=== PATIENT | female | born 1960 | race Caucasian/White ===

== ENCOUNTER 2017-01-11 17:15 | Inpatient (IN) | payer OTHER ==
[2017-01-11 20:14] LABS: INR 1.09 (0.82-1.09)
[2017-01-11 20:19] LABS: BASOPHIL 0.4 % (0-2.0); EOSINOPHIL 0.3 % (0-4.5); MCH 28.9 pg (25.7-33.7); MCHC 33.2 g/dl (32.0-36.0); MEAN CELL VOLUME 87.1 fl (80-96); MEAN PLT VOLUME 7.9 fl (7.5-11.1); NEUTROPHILS 66.6 % (42.8-82.8); PLATELET COUNT 366 K/MM3 (134-434); RDW 14.6 % (11.6-15.6); WHITE BLOOD COUNT 11.4 K/mm3 (4.0-10.0)
--- NOTE | 2017-01-11 20:53 | PDOC ---
History of Present Illness - General History Source: Patient Exam Limitations: No Limitations - History of Present Illness Initial Comments: 01/11/17 21:49 The patient is a 56 year old female with a significant past medical history of diverticulitis and fistula through abdominal wall, sent by PCP to the Emergency Department with lower abdominal pain. The patient reports that last summer she was diagnosed with diverticulitis, and in July developed an abscess and fistula. She reports that her GI has been managing her symptoms with antibiotics , and a tube draining fluid from the abscess. She states that in the past week she was told to stop the antibiotics and start a high fiber diet. She reports that she then had an infection in in her abscess which was cleaned, and was restarted on antibiotics two days ago. She states that her last CT was three weeks ago. She reports that she has not yet had surgery because she did not previously have insurance. The patient denies nausea, vomiting, and diarrhea. Patient denies dysuria, urinary frequency, and urgency. Patient denies fever, cough, and chills. Patient denies chest pain, palpitations, and shortness of breath. PCP: Dr. Thurston Surgical: Dr. Dent GI: Dr. Thiago Lainez <Yanelis Bowen - Last Filed: 01/11/17 21:50> <Iwona Thayer - Last Filed: 01/14/17 05:38> - General Chief Complaint: Pain Stated Complaint: PAIN Time Seen by Provider: 01/11/17 19:23 Past History <Yanelis Bowen - Last Filed: 01/11/17 21:50> - Past Medical History Anemia: No Asthma: No Cancer: No Cardiac Disorders: No CVA: No COPD: No CHF: No Dementia: No Diabetes: No GI Disorders: Yes (Diverticulitis) Disorders: No HTN: No Hypercholesterolemia: No Liver Disease: No Seizures: No Thyroid Disease: No - Surgical History Abdominal Surgery: Yes Appendectomy: No Cardiac Surgery: No Cholecystectomy: No Lung Surgery: No Neurologic Surgery: No Orthopedic Surgery: No - Psycho/Social/Smoking Cessation Hx Anxiety: No Suicidal Ideation: No Smoking History: Former smoker Have you smoked in the past 12 months: No If you are a former smoker, when did you quit?: 20 years ago Information on smoking cessation initiated: No Hx Alcohol Use: No Drug/Substance Use Hx: No Substance Use Type: Marijuana <Iwona Thayer - Last Filed: 01/14/17 05:38> - Past Medical History Allergies/Adverse Reactions: Allergies Allergy/AdvReac Type Severity Reaction Status Date / Time pantoprazole sodium Allergy Verified 01/11/17 17:30 [From Protonix] Home Medications: Ambulatory Orders Levofloxacin [Levaquin -] 500 mg PO DAILY@0600 #20 tablet 09/26/16 Metronidazole [Flagyl -] 500 mg PO TID #60 tablet 09/26/16 Oxycodone HCl/Acetaminophen [Percocet 5-325 mg Tablet] 1 - 2 tab PO Q4H #30 tablet MDD 60mg 09/26/16 Review of Systems - Review of Systems Able to Perform ROS?: Yes Comments:: 01/11/17 21:50 GENERAL/CONSTITUTIONAL: No fever or chills. No weakness. HEAD, EYES, EARS, NOSE AND THROAT: No change in vision. No ear pain or discharge. No sore throat. CARDIOVASCULAR: No chest pain or shortness of breath. RESPIRATORY: No cough, wheezing, or hemoptysis. GASTROINTESTINAL: + open abscess at lower abdomen, + abdominal pain. No nausea , vomiting, diarrhea or constipation. GENITOURINARY: No dysuria, frequency, or change in urination. MUSCULOSKELETAL: No joint or muscle swelling or pain. No neck or back pain. SKIN: No rash NEUROLOGIC: No headache, vertigo, loss of consciousness, or change in strength/ sensation. ENDOCRINE: No increased thirst. No abnormal weight change. HEMATOLOGIC/LYMPHATIC: No anemia, easy bleeding, or history of blood clots. ALLERGIC/IMMUNOLOGIC: No hives or skin allergy. <Yanelis Bowen - Last Filed: 01/11/17 21:50> *Physical Exam - Vital Signs Last Vital Signs Temp Pulse Resp BP Pulse Ox 98.4 F 99 H 21 124/81 96 01/11/17 17:30 01/11/17 17:30 01/11/17 17:30 01/11/17 17:30 01/11/17 17:30 - Physical Exam Comments: 01/11/17 21:50 GENERAL: Awake, alert, and fully oriented, in no acute distress HEAD: No signs of trauma EYES: PERRLA, EOMI, sclera anicteric, conjunctiva clear ENT: Auricles normal inspection, hearing grossly normal, nares patent, oropharynx clear without exudates. Moist mucosa NECK: Normal ROM, supple, no lymphadenopathy, JVD, or masses LUNGS: Breath sounds equal, clear to auscultation bilaterally. No wheezes, and no crackles HEART: Regular rate and rhythm, normal S1 and S2, no murmurs, rubs or gallops ABDOMEN: Lower abdominal pain with palpation. No rebound no guarding. Open abscess at central lower abdomen, below the umbilicus, attached to a colostomy bag for drainage, however no colostomy. EXTREMITIES: Normal range of motion, no edema. No clubbing or cyanosis. No cords, erythema, or tenderness NEUROLOGICAL: Cranial nerves II through XII grossly intact. Normal speech, normal gait SKIN: Warm, Dry, normal turgor, no rashes or lesions noted. <Yanelis Bowen - Last Filed: 01/11/17 21:50> - Vital Signs Last Vital Signs Temp Pulse Resp BP Pulse Ox 98.4 F 99 H 21 124/81 96 01/11/17 17:30 01/11/17 17:30 01/11/17 17:30 01/11/17 17:30 01/11/17 17:30 <Iwona Thayer - Last Filed: 01/14/17 05:38> ED Treatment Course - LABORATORY CBC & Chemistry Diagram: 01/11/17 19:32 01/11/17 19:32 - ADDITIONAL ORDERS Additional order review: Laboratory Results 01/11/17 01/11/17 01/11/17 19:43 19:41 19:41 INR 1.09 Sodium Potassium Chloride Carbon Dioxide Anion Gap BUN Creatinine Creat Clearance w eGFR Random Glucose Calcium Total Bilirubin AST ALT Alkaline Phosphatase Total Protein Albumin Total Amylase Lipase Urine HCG, Qual Negative Blood Type A POSITIVE Antibody Screen 01/11/17 01/11/17 01/11/17 19:32 19:32 19:32 INR Sodium Cancelled Potassium Cancelled Chloride Cancelled Carbon Dioxide Cancelled Anion Gap Cancelled BUN Cancelled Creatinine Cancelled Creat Clearance w eGFR Cancelled Random Glucose Cancelled Calcium Cancelled Total Bilirubin Cancelled AST Cancelled ALT Cancelled Alkaline Phosphatase Cancelled Total Protein Cancelled Albumin Cancelled Total Amylase Cancelled Lipase Cancelled Urine HCG, Qual Blood Type A POSITIVE Antibody Screen Negative 01/11/17 19:32 RBC 4.86 D MCV 87.1 MCHC 33.2 RDW 14.6 MPV 7.9 Neutrophils % 66.6 Lymphocytes % 24.9 D Monocytes % 7.8 Eosinophils % 0.3 Basophils % 0.4 <Yanelis Bowen - Last Filed: 01/11/17 21:50> - LABORATORY CBC & Chemistry Diagram: 01/13/17 06:15 01/13/17 06:15 - ADDITIONAL ORDERS Additional order review: Laboratory Results 01/11/17 01/11/17 01/11/17 19:43 19:41 19:32 INR 1.09 Sodium Potassium Chloride Carbon Dioxide Anion Gap BUN Creatinine Creat Clearance w eGFR Random Glucose Calcium Total Bilirubin AST ALT Alkaline Phosphatase Total Protein Albumin Total Amylase Lipase Cancelled Blood Type A POSITIVE Antibody Screen 01/11/17 01/11/17 19:32 19:32 INR Sodium Cancelled Potassium Cancelled Chloride Cancelled Carbon Dioxide Cancelled Anion Gap Cancelled BUN Cancelled Creatinine Cancelled Creat Clearance w eGFR Cancelled Random Glucose Cancelled Calcium Cancelled Total Bilirubin Cancelled AST Cancelled ALT Cancelled Alkaline Phosphatase Cancelled Total Protein Cancelled Albumin Cancelled Total Amylase Cancelled Lipase Blood Type A POSITIVE Antibody Screen Negative 01/11/17 19:32 RBC 4.86 D MCV 87.1 MCHC 33.2 RDW 14.6 MPV 7.9 Neutrophils % 66.6 Lymphocytes % 24.9 D Monocytes % 7.8 Eosinophils % 0.3 Basophils % 0.4 - RADIOLOGY Radiology Studies Ordered: Category Date Time Status CHEST X-RAY PORTABLE* [RAD] Stat Radiology 01/11/17 19:25 Completed <Iwona Thayer - Last Filed: 01/14/17 05:38> Medical Decision Making - Medical Decision Making 01/11/17 21:50 Dr. Thurston was called at his office at 9:30. Answering service instructed to refer to Hospitalist. <Yanelis Bowen - Last Filed: 01/11/17 21:50> - Medical Decision Making 01/11/17 21:38 Pt comes with abdominal pains and increased drainage form her abdominal wound. She also complains of bubbles coming out of her vagina and fear that she may have another fistula forming. She states that she has been suffering with diverticulitis since Jul 2016. States that she developed abscessed that formed fistulous tracts through her abdominal wall. She did not have insurance and has and her doctors have been treating this with this with oral and IV antibiotics 01/14/17 05:37 Pt admitted to the hospitalist for workup of her fistulas/pathologic bowel. Surg and GI will be consulted. <Iwona Thayer - Last Filed: 01/14/17 05:38> *DC/Admit/Observation/Transfer - Attestations Scribe Attestion: 01/11/17 21:50 Documentation prepared by Yanelis Bowen, acting as medical records director for Iwona Thayer MD. <Yanelis Bowen - Last Filed: 01/11/17 21:50> - Discharge Dispostion Admit: Yes <Iwona Thayer - Last Filed: 01/14/17 05:38> Diagnosis at time of Disposition: Diverticulitis of intestine with perforation and abscess - Referrals
[2017-01-11] MEDS ORDERED: LEVOFLOXACIN 500 MG IVPB 100 ML IVPB ONE ×2 (21:09→21:35)
[2017-01-11] MEDS ORDERED: METRONIDAZOLE 500 MG PREMIXED 100 ML IVPB ONE (21:09)
[2017-01-11] MEDS ORDERED: morphine CARPU-JECT 2 MG/1 ML DISP.SYRIN IVPUSH ONE (22:00)
[2017-01-11 22:04] LABS: ALBUMIN 3.5 g/dl (3.4-5.0); AMYLASE 50 U/L (25-115); ANION GAP 9 (8-16); BILIRUBIN,TOTAL 0.4 mg/dL (0.2-1.0); CALCIUM 9.2 mg/dL (8.5-10.1); CO2 29 mmol/L (21-32); CREATININE 0.7 mg/dL (0.55-1.02); GLUCOSE,RANDOM 103 mg/dL (74-106); SGOT/AST 13 U/L (15-37); SGPT/ALT 18 U/L (12-78); TOT PROT 7.4 g/dl (6.4-8.2)
[2017-01-11] MEDS ORDERED: morphine CARPU-JECT 2 MG/1 ML DISP.SYRIN ONE (22:04)
[2017-01-11 22:05] LABS: ALK PHOS 75 U/L (45-117)
[2017-01-11 23:48] LABS: URINE APPEARANCE TURBID; URINE BILIRUBIN NEGATIVE (NEGATIVE); URINE COLOR YELLOW; URINE GLUCOSE (UA) NEGATIVE (NEGATIVE); URINE KETONE NEGATIVE (NEGATIVE); URINE NITRITE NEGATIVE (NEGATIVE); URINE UROBILINOGEN NEGATIVE E.U./dl (0.2-1.0)
[2017-01-11 23:52] LABS: URINE BLOOD 1+ (NEGATIVE); URINE LEUK ESTERASE 2+ (NEGATIVE); URINE PROTEIN 2+ (NEGATIVE)
[2017-01-11 23:54] LABS: URINE BACTERIA MANY /hpf (NONE SEEN); URINE MUCUS FEW; URINE RBC 44 /hpf (0-3); URINE WBC 3291 /hpf (3-5)
--- NOTE | 2017-01-12 01:16 | HP ---
CHIEF COMPLAINT: abdominal pain PCP: Thurston HISTORY OF PRESENT ILLNESS: This is a 56 year old female with a past medical history of diverticulitis with fistula formulation who presented to the ED with abdominal pain and sensation of bubbling in "crotch" after urinating. Pt unable to specify if the sensation is in the vagina or the urethra. Initially refused CT in the ED. Pt states that she initially started with abdominal pain sometime over the summer but did not go to the doctor until the pain became severe. She was finally diagnosed with diverticulitis on admission to a hospital in [place] on 08/06/16. She was admitted here for diverticulitis from 09/14/16-09/26/16 which was complicated by abscess and fistula formulation. She has been followed as an outpatient by her PCP and Dr. Oshea with po antibiotics. She also developed oral thrush and has been on nystatin solution for it. Upon exam, pt reports mild abdominal pain with the bubbling sensation persisting. ER course was notable for: (1) WBC 11.4 (2) levaquin and flagyl given IV (3) Recent Travel: pt denies PAST MEDICAL HISTORY: diverticulitis with abscess and abdominal wall fistula formation PAST SURGICAL HISTORY: denies Social History: Smokinpack year history, smoked on and off for about 12-14 years 1-2ppd, mostly 2ppd Alcohol: pt denies Drugs: marijuana Family History: father , prostate CA, PMH diabetes, 4vCABG Allergies pantoprazole sodium [From Protonix] Allergy (Verified 01/11/17 17:30) HOME MEDICATIONS: 3 Medication Instructions Recorded Levofloxacin [Levaquin -] 500 mg PO DAILY@0600 #20 tablet 09/26/16 Metronidazole [Flagyl -] 500 mg PO TID #60 tablet 09/26/16 Oxycodone HCl/Acetaminophen 1 - 2 tab PO Q4H #30 tablet MDD 09/26/16 [Percocet 5-325 mg Tablet] 60mg REVIEW OF SYSTEMS CONSTITUTIONAL: Absent: fever, chills, diaphoresis, generalized weakness, malaise, loss of appetite, weight change HEENT: Absent: rhinorrhea, nasal congestion, throat pain, throat swelling, difficulty swallowing, mouth swelling, ear pain, eye pain, visual changes CARDIOVASCULAR: Absent: chest pain, syncope, palpitations, irregular heart rate, lightheadedness , peripheral edema RESPIRATORY: Absent: cough, shortness of breath, dyspnea with exertion, orthopnea, wheezing, stridor, hemoptysis GASTROINTESTINAL: Present: abdominal pain Absent: abdominal distension, nausea, vomiting, diarrhea, constipation, melena, hematochezia GENITOURINARY: Present: bubbling sensation after urination Absent: dysuria, frequency, urgency, hesitancy, hematuria, flank pain, genital pain MUSCULOSKELETAL: Absent: myalgia, arthralgia, joint swelling, back pain, neck pain SKIN: Absent: rash, itching, pallor HEMATOLOGIC/IMMUNOLOGIC: Absent: easy bleeding, easy bruising, lymphadenopathy, frequent infections ENDOCRINE: Absent: unexplained weight gain, unexplained weight loss, heat intolerance, cold intolerance NEUROLOGIC: Absent: headache, focal weakness or paresthesias, dizziness, unsteady gait, seizure, mental status changes, bladder or bowel incontinence PSYCHIATRIC: Absent: anxiety, depression, suicidal or homicidal ideation, hallucinations. PHYSICAL EXAMINATION Vital Signs - 24 hr 3 01/11/17 01/11/17 01/11/17 17:30 17:50 20:05 23:54 Temperature 98.4 F Pulse Rate 99 H Pulse Rate [ 85 82 Right Radial] Respiratory 21 18 18 Rate Blood Pressure 124/81 Blood Pressure 120/71 115/68 [Right Arm] O2 Sat by Pulse 96 100 100 100 Oximetry (%) GENERAL: Awake, alert, and fully oriented, in no acute distress. HEAD: Normal with no signs of trauma. EYES: Pupils equal, round and reactive to light, extraocular movements intact, sclera anicteric, conjunctiva clear. No lid lag. EARS, NOSE, THROAT: Ears normal, nares patent, oropharynx clear without exudates. Moist mucous membranes. tongue with white coating NECK: Normal range of motion, supple without lymphadenopathy, JVD, or masses. LUNGS: Breath sounds equal, clear to auscultation bilaterally. No wheezes, and no crackles. No accessory muscle use. HEART: Regular rate and rhythm, normal S1 and S2 without murmur, rub or gallop. ABDOMEN: Soft, not distended, hyperactive bowel sounds, no guarding, no rebound , no masses. No hepatomegaly or splenomegaly. + tenderness LLQ, central open areas x 2, lower abdomen, draining brown liquid into bag; no erythema to surrounding skin. MUSCULOSKELETAL: Normal range of motion at all joints. No bony deformities or tenderness. No CVA tenderness. UPPER EXTREMITIES: 2+ pulses, warm, well-perfused. No cyanosis. No clubbing. No peripheral edema. LOWER EXTREMITIES: 2+ pulses, warm, well-perfused. No calf tenderness. No peripheral edema. NEUROLOGICAL: Cranial nerves II-XII intact. Normal speech. Normal gait. PSYCHIATRIC: Cooperative. Good eye contact. Appropriate mood and affect. SKIN: Warm, dry, normal turgor, no rashes or lesions noted, normal capillary refill. Laboratory Results - last 24 hr 3 01/11/17 01/11/17 01/11/17 18:00 19:32 19:41 WBC 11.4 H RBC 4.86 D Hgb 14.0 D Hct 42.3 D MCV 87.1 MCHC 33.2 RDW 14.6 Plt Count 366 D MPV 7.9 Neutrophils % 66.6 Lymphocytes % 24.9 D Monocytes % 7.8 Eosinophils % 0.3 Basophils % 0.4 INR 1.09 Sodium 140 Potassium 4.2 Chloride 102 Carbon Dioxide 29 Anion Gap 9 BUN 15 D Creatinine 0.7 Creat Clearance w eGFR > 60 Random Glucose 103 Calcium 9.2 Total Bilirubin 0.4 AST 13 L ALT 18 D Alkaline Phosphatase 75 D Total Protein 7.4 Albumin 3.5 D Total Amylase 50 Lipase 101 Urine Color Urine Appearance Urine pH Ur Specific [employer] Urine Protein Urine Glucose (UA) Urine Ketones Urine Blood Urine Nitrite Urine Bilirubin Urine Urobilinogen Ur Leukocyte Esterase Urine RBC Urine WBC Ur Epithelial Cells Urine Bacteria Urine Mucus Urine HCG, Qual Negative Blood Type A POSITIVE Antibody Screen Negative 3 Urine Color Yellow 01/11/17 23:23 Urine Appearance Turbid 01/11/17 23:23 Urine pH 6.0 (5.0-8.0) 01/11/17 23:23 Ur Specific [employer] 1.016 (1.001-1.035) 01/11/17 23:23 Urine Protein 2+ (NEGATIVE) H 01/11/17 23:23 Urine Glucose (UA) Negative (NEGATIVE) 01/11/17 23:23 Urine Ketones Negative (NEGATIVE) 01/11/17 23:23 Urine Blood 1+ (NEGATIVE) H 01/11/17 23:23 Urine Nitrite Negative (NEGATIVE) 01/11/17 23:23 Urine Bilirubin Negative (NEGATIVE) 01/11/17 23:23 Ur Leukocyte Esterase 2+ (NEGATIVE) H 01/11/17 23:23 Urine RBC 44 /hpf (0-3) 01/11/17 23:23 Urine WBC 3291 /hpf (3-5) 01/11/17 23:23 Ur Epithelial Cells Rare /hpf (FEW) 01/11/17 23:23 Urine Bacteria Many /hpf (NONE SEEN) 01/11/17 23:23 Urine Mucus Few 01/11/17 23:23 ASSESSMENT/PLAN: 56yF with PMH diverticulitis with abscess and fistula formulation presented to the ED with abdominal pain and "bubbles from vaginal area vs urethra". Pt is admitted for further workup. Diverticulitis with abdominal wall fistula with possible new vaginal vs bladder fistula - CT abdomen / pelvis ordered, pt agrees to same. - surgical consult - GI consult - cont levaquin and flagyl IVPB - NPO for now until surgical consult UTI - Cont IV levaquin - CT to r/o vesicular fistula DVT PPX - heparin 5000u TID FEN - NS @ 100cc/hr while NPO - repeat labs including Mg and Phos in am - NPO for now Dispo: Pt currently requires inpatient management of her emergent condition. Visit type - Emergency Visit Emergency Visit: Yes ED Registration Date: 01/11/17 Care time: The patient presented to the Emergency Department on the above date and was hospitalized for further evaluation of their emergent condition. - New Patient This patient is new to me today: Yes Date on this admission: 01/12/17 - Critical Care Critical Care patient: No
[2017-01-12 01:39] VITALS: BMI 20.5
[2017-01-12] MEDS ORDERED: ONDANSETRON 4 MG/2 ML VIAL IVPB PRN (02:42)
[2017-01-12] MEDS ORDERED: ONDANSETRON 4 MG/2 ML VIAL ONE (02:57)
[2017-01-12] MEDS: SODIUM CHLORIDE 1,000 ML IV SCH (03:19)
[2017-01-12] MEDS ORDERED: METRONIDAZOLE 500 MG PREMIXED 100 ML IVPB SCH (04:00)
[2017-01-12] MEDS: morphine CARPU-JECT 2 MG/1 ML DISP.SYRIN IVPUSH PRN ×2 (06:41→16:37)
[2017-01-12] MEDS: NYSTATIN 500,000 UNITS/5 ML SUSPENSION PO SCH ×4 (06:46→23:09)
[2017-01-12] MEDS: METRONIDAZOLE 500 MG PREMIXED 100 ML IVPB SCH ×3 (06:47→17:40)
[2017-01-12] MEDS: HEPARIN NA (PORCINE) 5,000 UNITS/ML 1ML VIAL SQ SCH ×3 (06:47→22:33)
--- NOTE | 2017-01-12 12:52 | CON.GI ---
Consult Consult Specialty:: Gastroenterology Referred by:: Dr. Denzel Thurston and Dr Thayer Reason for Consultation:: Fistulizing diverticular abscesses - History of Present Illness Chief Complaint: lower abdominal pain; stool and bubbles in vagina History of Present Illness: 56W is admitted with lower abdominal pain. She has anterior lower abdominal draining fistulae at drain sites but also describes feces and bubbles emanating from her vagina and ? urine. She had several episodes of abdominal pain in the summer of 2015 before she was hospitalized while visiting [place] in 07/22 with multiple diverticular abscesses that required drains. The drains were removed but she never really improved completely and was hospitalized for the same here in 09/21. Drains were reinserted. She was followed by Dr. Sanders and Dr. Oshea who planned surgery but which she could not afford as they don't accept her insurance. She saw my associated Dr Lainez yesterday in the office c/o pain and active fistulae drainage including probable colovaginal and/or colovesical fistulae. She has never had abdominal surgery or a colonoscopy. No FH of colon cancer. She has lost about 20 lbs since 07/22 and has not had a solid BM since then. - History Source History Provided By: Patient Limitations to Obtaining History: No Limitations - Past Medical History Gastrointestinal: Yes: Diverticulitis (with multiple abscesses leading to colovaginal/vesical and cutaneous fistulae ) ...: No - Past Surgical History Past Surgical History: Yes: None - Alcohol/Substance Use Hx Alcohol Use: No History of Substance Use: reports: Marijuana - Smoking History Smoking history: Former smoker Have you smoked in the past 12 months: No If you are a former smoker, when did you quit?: 20 years ago - Social History Usual Living Arrangement: With Significant Other ADL: Independent Occupation: massage therapist Place of : [facility] History of Recent Travel: Yes Home Medications - Allergies Allergies/Adverse Reactions: Allergies Allergy/AdvReac Type Severity Reaction Status Date / Time pantoprazole sodium Allergy Verified 01/11/17 17:30 [From Protonix] - Home Medications Home Medications: Ambulatory Orders Levofloxacin [Levaquin -] 500 mg PO DAILY@0600 #20 tablet 09/26/16 Metronidazole [Flagyl -] 500 mg PO TID #60 tablet 09/26/16 Oxycodone HCl/Acetaminophen [Percocet 5-325 mg Tablet] 1 - 2 tab PO Q4H #30 tablet MDD 60mg 09/26/16 Family Disease History - Family Disease History Family Disease History: Diabetes: Father (prostate,bladder,penis & skin cancers) , Heart Disease: Father, CA: Father, Other: Mother (alive at 89) Review of Systems - Review of Systems Constitutional: reports: Chills, Malaise, Unintentional Wgt. Loss Eyes: reports: No Symptoms HENT: reports: No Symptoms Neck: reports: No Symptoms Cardiovascular: reports: No Symptoms Respiratory: reports: No Symptoms Gastrointestinal: reports: Abdominal Pain, Diarrhea, Other (cutanous and colovaginal fistulae) Genitourinary: reports: Discharge (feculent) Musculoskeletal: reports: No Symptoms Integumentary: reports: No Symptoms Neurological: reports: No Symptoms Psychiatric: reports: No Symptoms Physical Exam-GI Vital Signs: Vital Signs Temperature 98.2 F 01/12/17 10:00 Pulse Rate 86 01/12/17 10:00 Respiratory Rate 18 01/12/17 10:00 Blood Pressure 106/66 01/12/17 10:00 O2 Sat by Pulse Oximetry (%) 100 01/12/17 10:00 CBC,CMP WBC 11.4 K/mm3 (4.0-10.0) H 01/11/17 19:32 RBC 4.86 M/mm3 (3.60-5.2) D 01/11/17 19:32 Hgb 14.0 GM/dL (10.7-15.3) D 01/11/17 19:32 Hct 42.3 % (32.4-45.2) D 01/11/17 19:32 MCV 87.1 fl (80-96) 01/11/17 19:32 MCHC 33.2 g/dl (32.0-36.0) 01/11/17 19:32 RDW 14.6 % (11.6-15.6) 01/11/17 19:32 Plt Count 366 K/MM3 (134-434) D 01/11/17 19:32 MPV 7.9 fl (7.5-11.1) 01/11/17 19:32 Neutrophils % 66.6 % (42.8-82.8) 01/11/17 19:32 Lymphocytes % 24.9 % (8-40) D 01/11/17 19:32 Monocytes % 7.8 % (3.8-10.2) 01/11/17 19:32 Eosinophils % 0.3 % (0-4.5) 01/11/17 19:32 Basophils % 0.4 % (0-2.0) 01/11/17 19:32 Sodium Cancelled 01/11/17 19:32 Potassium Cancelled 01/11/17 19:32 Chloride Cancelled 01/11/17 19:32 Carbon Dioxide Cancelled 01/11/17 19:32 Anion Gap Cancelled 01/11/17 19:32 BUN Cancelled 01/11/17 19:32 Creatinine Cancelled 01/11/17 19:32 Creat Clearance w eGFR Cancelled 01/11/17 19:32 Random Glucose Cancelled 01/11/17 19:32 Calcium Cancelled 01/11/17 19:32 Total Bilirubin Cancelled 01/11/17 19:32 AST Cancelled 01/11/17 19:32 ALT Cancelled 01/11/17 19:32 Alkaline Phosphatase Cancelled 01/11/17 19:32 Total Protein Cancelled 01/11/17 19:32 Albumin Cancelled 01/11/17 19:32 Total Amylase Cancelled 01/11/17 19:32 Lipase Cancelled 01/11/17 19:32 Current Medications Generic Name Dose Route Start Last Admin Trade Name Freq PRN Reason Stop Dose Admin Heparin Sodium (Porcine) 5,000 unit 01/12/17 06:00 01/12/17 06:47 Heparin - SQ Not Given TID ERIK Levofloxacin 100 mls @ 100 mls/hr 01/12/17 22:00 Levaquin 500 Mg Premixed Ivpb - IVPB HS ERIK Sodium Chloride 1,000 mls @ 100 mls/hr 01/12/17 03:00 01/12/17 03:19 Normal Saline - IV 100 mls/hr ASDIR ERIK Administration Metronidazole 100 mls @ 100 mls/hr 01/12/17 06:00 01/12/17 10:06 Flagyl 500mg Premixed Ivpb - IVPB 100 mls/hr Q8H-IV ERIK Administration Morphine Sulfate 2 mg 01/12/17 01:17 01/12/17 06:41 Morphine Injection - IVPUSH 2 mg Q4H PRN Administration PAIN Nystatin 500,000 units 01/12/17 06:00 01/12/17 12:42 Nystatin Oral Suspension - PO 500,000 units Q6HPO ERIK Administration Ondansetron HCl 4 mg 01/12/17 02:42 01/12/17 03:20 Zofran Injection IVPB 4 mg Q6H PRN Administration NAUSEA Constitutional: Yes: Anxious Eyes: Yes: Conjunctiva Clear HENT: Yes: Normocephalic Neck: Yes: Supple Cardiovascular: Yes: Regular Rate and Rhythm Respiratory: Yes: CTA Bilaterally Gastrointestinal Inspection: Yes: Other (suprapubic draining fistulae) ...Auscultate: Yes: Normoactive Bowel Sounds ...Palpate: Yes: Soft, Other (nontender) ...Rectal Exam: Yes: Deferred (as done by Dr. Lainez yesterday which she reports as guaiac negative) Edema: No Peripheral Pulses WNL: Yes Neurological: Yes: Alert, Oriented Psychiatric: Yes: Alert Labs: INR, PTT INR 1.09 (0.82-1.09) 01/11/17 19:41 Imaging - Results Cat Scan: Image Reviewed (pelvic asbscesses abutting on bladder with cutaneous fistulae) Problem List - Problems (1) [place]-vesical fistula Code(s): N32.1 - VESICOINTESTINAL FISTULA (2) Colocutaneous fistula Code(s): K63.2 - FISTULA OF INTESTINE (3) Weight loss Code(s): R63.4 - ABNORMAL WEIGHT LOSS Assessment/Plan Unrelenting sigmoid diverticulitis and abscesses that have failed to adequately respond to cutaneous drainage and courses of antibiotics now complicated by colocutaneous, colovaginal and probably colovesical fistulae and in need to surgery. Kim informs me that she cannot afford her previous surgeon's rate and seeks a surgeon who will accept her health insurance. I will seek such a surgeon. Will advance the diet. Will discuss drain insertion with the surgeon.
--- NOTE | 2017-01-12 16:20 | EKG ---
Test Reason : Blood Pressure : / mmHG Vent. Rate : 078 BPM Atrial Rate : 078 BPM P-R Int : 122 ms QRS Dur : 082 ms QT Int : 392 ms P-R-T Axes : 080 069 055 degrees QTc Int : 446 ms NORMAL SINUS RHYTHM NORMAL ECG WHEN COMPARED WITH ECG OF 14-SEP-2016 19:04, NO SIGNIFICANT CHANGE WAS FOUND Confirmed by SPRING COURTNEY MD ([id number]) on 01/12/2017 4:19:50 PM Referred By: Confirmed By:SPRING COURTNEY MD
--- NOTE | 2017-01-12 16:35 | PN ---
Physical Exam: SUBJECTIVE: Patient seen and examined. Denies any abdominal pain, or any other discomfort. OBJECTIVE: Vital Signs Period Temp Pulse Resp BP Sys/Lowry Pulse Ox Last 24 Hr 98.1 F-98.6 F 82-102 18-20 106-116/63-79 100-100 GENERAL: Awake, alert, and fully oriented, in no acute distress. HEAD: Normal with no signs of trauma. EYES: Pupils equal, round and reactive to light, extraocular movements intact, sclera anicteric, conjunctiva clear. No lid lag. EARS, NOSE, THROAT: Moist mucous membranes. Entire tongue covered with white coating, likely thrush LUNGS: Breath sounds equal, clear to auscultation bilaterally. No wheezes. HEART: Regular rate and rhythm ABDOMEN: lower abdomen with two small fistulas which are draining light brown liquid into bag; no erythema to surrounding skin. MUSCULOSKELETAL: Normal range of motion at all joints. No bony deformities or tenderness. No CVA tenderness. UPPER EXTREMITIES: 2+ pulses, warm, well-perfused. No cyanosis. No clubbing. No peripheral edema. LOWER EXTREMITIES: 2+ pulses, warm, well-perfused. No calf tenderness. No peripheral edema. NEUROLOGICAL: Normal speech. Normal gait. PSYCHIATRIC: Cooperative. Good eye contact. Appropriate mood and affect. Laboratory Results - last 24 hr 01/11/17 23:23 Urine Color Yellow Urine Appearance Turbid Urine pH 6.0 Ur Specific [place] 1.016 Urine Protein 2+ H Urine Glucose (UA) Negative Urine Ketones Negative Urine Blood 1+ H Urine Nitrite Negative Urine Bilirubin Negative Urine Urobilinogen Negative Ur Leukocyte Esterase 2+ H Urine RBC 44 Urine WBC 3291 Ur Epithelial Cells Rare Urine Bacteria Many Urine Mucus Few Active Medications Generic Name Dose Route Start Last Admin Trade Name Freq PRN Reason Stop Dose Admin Docusate Sodium 100 mg 01/12/17 22:00 Colace - PO TID [facility] Heparin Sodium (Porcine) 5,000 unit 01/12/17 06:00 01/12/17 15:23 Heparin - SQ Not Given TID ERIK Levofloxacin 100 mls @ 100 mls/hr 01/12/17 22:00 Levaquin 500 Mg Premixed Ivpb - IVPB HS ERIK Sodium Chloride 1,000 mls @ 100 mls/hr 01/12/17 03:00 01/12/17 03:19 Normal Saline - IV 100 mls/hr ASDIR ERIK Administration Metronidazole 100 mls @ 100 mls/hr 01/12/17 06:00 01/12/17 10:06 Flagyl 500mg Premixed Ivpb - IVPB 100 mls/hr Q8H-IV ERIK Administration Morphine Sulfate 2 mg 01/12/17 01:17 01/12/17 06:41 Morphine Injection - IVPUSH 2 mg Q4H PRN Administration PAIN Nystatin 500,000 units 01/12/17 06:00 01/12/17 12:42 Nystatin Oral Suspension - PO 500,000 units Q6HPO ERIK Administration Ondansetron HCl 4 mg 01/12/17 02:42 01/12/17 03:20 Zofran Injection IVPB 4 mg Q6H PRN Administration NAUSEA ASSESSMENT/PLAN: Patient is a 56 year old female with a past medical history of diverticulitis with abscess and fistula formulation, multiple diverticular abscesses that required drains. She presented to the ER on 01/11/2017 with abdominal pain and with complaints of "bubbles from vaginal area". She had planned outpatient abdominal surgery but unable to afford secondary to insurance. She saw Dr Lainez yesterday who advised her to come to the hospital. She has lost an average of 20lbs since July 2016. Imaging: CT abdomen/pelvis 01/12/2017: in comparison to study 12/20/2016 small pericolonic abscess along the ventral border of the sigmoid colon appears mildly increased in size currently measuring 2cm in diameter was 1.5cm a pericolonic abscess along the inferior border of the sigmoid colon appears slightly dim. in size A 1.7 cm abscess is noted with the cul de sac previous measuring 2cm A sigmoid cutaneous fistula appears slightly increased in size A second sigmoid-cutaneous fistula more inferiorly appears unchanged Interval appearance of a small amount of air is seen within the urinary bladder lumen due to recent cath versus development of colovesicul fistula GI: Diverticulitis with abdominal wall fistula with possible new colovesical fistula as per CT Assessment/Plan: Surgical noted reviewed, surgery likely Advance diet as per surgery Monitor output from fistula Surgical/GI consult On Flagyl and Levaquin : Possible new colovesical fistula as per CT Assessment/Plan: Urine cultures pending On Levaquin and Flagyl Remains afebrile, hemodynamically stable Monitor and consider ID consult if becomes febrile Muscular/Skeletal Abnormal weight loss - chronic Assessment/Plan: likely secondary to multiple fistulas, poor appetite Will consult RD, Monitor weights oral thrush - on nystatin F.E.N: Diet as per surgery, RD consult to assess if pt is candidate for PPN Fluids: NS @ 100cc/hr Nutrition: advance as per surgery Prophylaxis: GI: Protonix ivpb DVT:Heparin Dispo: Pt currently requires inpatient management of her emergent condition. Visit type - Emergency Visit Emergency Visit: Yes ED Registration Date: 01/11/17 Care time: The patient presented to the Emergency Department on the above date and was hospitalized for further evaluation of their emergent condition. - New Patient This patient is new to me today: Yes Date on this admission: 01/12/17 - Critical Care Critical Care patient: No - Discharge Referral Referred to [facility] Med P.C.: No
[2017-01-12] MEDS: LEVOFLOXACIN 500 MG IVPB 100 ML IVPB SCH (22:33)
[2017-01-12] MEDS: DOCUSATE SODIUM 100 MG CAPSULE (FP) PO SCH (22:33)
[2017-01-13] MEDS: METRONIDAZOLE 500 MG PREMIXED 100 ML IVPB SCH ×3 (01:48→18:13)
[2017-01-13] MEDS: SODIUM CHLORIDE 1,000 ML IV SCH ×2 (01:49→03:00)
[2017-01-13] MEDS: HEPARIN NA (PORCINE) 5,000 UNITS/ML 1ML VIAL SQ SCH ×4 (05:55→21:18)
[2017-01-13] MEDS: DOCUSATE SODIUM 100 MG CAPSULE (FP) PO SCH ×3 (05:55→21:11)
[2017-01-13] MEDS: NYSTATIN 500,000 UNITS/5 ML SUSPENSION PO SCH ×3 (05:55→18:13)
[2017-01-13] MEDS: morphine CARPU-JECT 2 MG/1 ML DISP.SYRIN IVPUSH PRN (06:08)
[2017-01-13 07:36] LABS: BASOPHIL 0.5 % (0-2.0); EOSINOPHIL 0.8 % (0-4.5); MCH 29.3 pg (25.7-33.7); MCHC 33.5 g/dl (32.0-36.0); MEAN CELL VOLUME 87.6 fl (80-96); MEAN PLT VOLUME 7.7 fl (7.5-11.1); NEUTROPHILS 58.1 % (42.8-82.8); PLATELET COUNT 244 K/MM3 (134-434); RDW 14.5 % (11.6-15.6); WHITE BLOOD COUNT 5.2 K/mm3 (4.0-10.0)
[2017-01-13] MEDS ORDERED: morphine CARPU-JECT 4 MG/1 ML DISP.SYRIN IVPUSH PRN (07:40)
[2017-01-13] MEDS ORDERED: morphine CARPU-JECT 2 MG/1 ML DISP.SYRIN IVPUSH ONE (08:00)
[2017-01-13 08:11] LABS: CALCIUM 8.3 mg/dL (8.5-10.1); MAGNESIUM 2.1 mg/dL (1.8-2.4)
[2017-01-13 08:12] LABS: COCKROFT - GAULT 104.55; CREATININE 0.5 mg/dL (0.55-1.02)
--- NOTE | 2017-01-13 09:16 | PN ---
Physical Exam: SUBJECTIVE: Patient seen and examined. States she is having abdominal pain not relieved with morphine. OBJECTIVE: Patient still with abdominal pain despite Morphine 2mg given 1 hour prior, will change to Dilaudid 0.5mg q4 and monitor Vital Signs Period Temp Pulse Resp BP Sys/Lowry Pulse Ox Last 24 Hr 97.9 F-99.2 F 75-102 18-20 87-114/51-68 100-100 GENERAL: Awake, alert, and fully oriented, in no acute distress. HEAD: Normal with no signs of trauma. EYES: Pupils equal, round and reactive to light, extraocular movements intact, sclera anicteric, conjunctiva clear. No lid lag. EARS, NOSE, THROAT: Moist mucous membranes. Entire tongue covered with white coating, likely thrush LUNGS: Breath sounds equal, clear to auscultation bilaterally. No wheezes. HEART: Regular rate and rhythm ABDOMEN: lower abdomen with two small fistulas which are draining light brown liquid into bag; no erythema to surrounding skin. MUSCULOSKELETAL: Normal range of motion at all joints. No bony deformities or tenderness. No CVA tenderness. UPPER EXTREMITIES: 2+ pulses, warm, well-perfused. No cyanosis. No clubbing. No peripheral edema. LOWER EXTREMITIES: 2+ pulses, warm, well-perfused. No calf tenderness. No peripheral edema. NEUROLOGICAL: Normal speech. Normal gait. PSYCHIATRIC: Cooperative. Good eye contact. Appropriate mood and affect. Laboratory Results - last 24 hr 01/13/17 01/13/17 01/13/17 06:15 06:15 06:15 WBC 5.2 D RBC 4.15 Hgb 12.2 D Hct 36.3 MCV 87.6 MCHC 33.5 RDW 14.5 Plt Count 244 D MPV 7.7 Neutrophils % 58.1 Lymphocytes % 29.5 Monocytes % 11.1 H Eosinophils % 0.8 D Basophils % 0.5 Sodium 141 Potassium 3.8 Chloride 108 H Carbon Dioxide 25 Anion Gap 8 BUN 7 D Creatinine 0.5 L D Random Glucose 118 H Calcium 8.3 L Phosphorus 3.0 Magnesium 2.1 C-Reactive Protein 1.4 H D Active Medications Generic Name Dose Route Start Last Admin Trade Name Freq PRN Reason Stop Dose Admin Docusate Sodium 100 mg 01/12/17 22:00 01/13/17 05:55 Colace - PO 100 mg TID ERIK Administration Heparin Sodium (Porcine) 5,000 unit 01/12/17 06:00 01/13/17 05:55 Heparin - SQ Not Given TID ERIK Levofloxacin 100 mls @ 100 mls/hr 01/12/17 22:00 01/12/17 22:33 Levaquin 500 Mg Premixed Ivpb - IVPB 100 mls/hr HS ERIK Administration Sodium Chloride 1,000 mls @ 100 mls/hr 01/12/17 03:00 01/13/17 03:00 Normal Saline - IV Not Given ASDIR ERIK Metronidazole 100 mls @ 100 mls/hr 01/12/17 06:00 01/13/17 01:48 Flagyl 500mg Premixed Ivpb - IVPB 100 mls/hr Q8H-IV ERIK Administration Nystatin 500,000 units 01/12/17 06:00 01/13/17 05:55 Nystatin Oral Suspension - PO 500,000 units Q6HPO ERIK Administration Ondansetron HCl 4 mg 01/12/17 02:42 01/12/17 03:20 Zofran Injection IVPB 4 mg Q6H PRN Administration NAUSEA ASSESSMENT/PLAN: Patient is a 56 year old female with a past medical history of diverticulitis with abscess and fistula formulation, multiple diverticular abscesses that required drains. She presented to the ER on 01/11/2017 with abdominal pain and with complaints of "bubbles from vaginal area". She had planned outpatient abdominal surgery but unable to afford secondary to insurance. She saw Dr Lainez who advised her to come to the hospital. She has lost an average of 20lbs since July 2016. Imaging: CT abdomen/pelvis 01/12/2017: in comparison to study 12/20/2016 small pericolonic abscess along the ventral border of the sigmoid colon appears mildly increased in size currently measuring 2cm in diameter was 1.5cm a pericolonic abscess along the inferior border of the sigmoid colon appears slightly dim. in size A 1.7 cm abscess is noted with the cul de sac previous measuring 2cm A sigmoid cutaneous fistula appears slightly increased in size A second sigmoid-cutaneous fistula more inferiorly appears unchanged Interval appearance of a small amount of air is seen within the urinary bladder lumen due to recent cath versus development of colovesicul fistula GI: Diverticulitis with abdominal wall fistula with possible new colovesical fistula as per CT Assessment/Plan: Surgical noted reviewed Advance diet as per surgery Monitor output from fistula Surgical/GI following On Flagyl and Levaquin : Possible new colovesical fistula as per CT Assessment/Plan: Urine cultures pending On Levaquin and Flagyl Remains afebrile, hemodynamically stable Monitor and consider ID consult if becomes febrile Muscular/Skeletal Abnormal weight loss - chronic Assessment/Plan: likely secondary to multiple fistulas, poor appetite Will consult RD, Monitor weights oral thrush - on nystatin F.E.N: Diet as per surgery, RD consult to assess if pt is candidate for PPN Fluids: NS @ 100cc/hr Nutrition: advance as per surgery Prophylaxis: GI: Protonix ivpb DVT:Heparin Dispo: Pt currently requires inpatient management of her emergent condition. Visit type - Emergency Visit Emergency Visit: Yes ED Registration Date: 01/11/17 Care time: The patient presented to the Emergency Department on the above date and was hospitalized for further evaluation of their emergent condition. - New Patient This patient is new to me today: No - Critical Care Critical Care patient: No - Discharge Referral Referred to [facility] Med P.C.: No
[2017-01-13] MEDS: HYDROmorphone HCL CARPU-JECT 1 MG/1 ML DISP.SYRIN IVPUSH PRN ×2 (10:08→15:23)
--- NOTE | 2017-01-13 11:56 | PN ---
Progress Note (short form) - Note Progress Note: Attending Surgeon Patient was seen and evaluated yesterday; I was asked to see her by Dr. Starkey; patient was seen and imaging reviewed; full note to follow; she will need a Hartmans procedure and then mormon of colonic continuity after the acute process resolves. Best Hernández MD FACS
[2017-01-13] MEDS: LEVOFLOXACIN 500 MG IVPB 100 ML IVPB SCH (21:11)
[2017-01-14] MEDS: NYSTATIN 500,000 UNITS/5 ML SUSPENSION PO SCH ×4 (00:02→18:05)
[2017-01-14] MEDS: HYDROmorphone HCL CARPU-JECT 1 MG/1 ML DISP.SYRIN IVPUSH PRN ×3 (00:41→13:23)
[2017-01-14] MEDS: METRONIDAZOLE 500 MG PREMIXED 100 ML IVPB SCH ×3 (02:30→18:04)
[2017-01-14] MEDS: SODIUM CHLORIDE 1,000 ML IV SCH (03:30)
[2017-01-14] MEDS: DOCUSATE SODIUM 100 MG CAPSULE (FP) PO SCH ×3 (05:29→21:02)
[2017-01-14] MEDS: HEPARIN NA (PORCINE) 5,000 UNITS/ML 1ML VIAL SQ SCH ×3 (05:30→21:02)
[2017-01-14 07:21] LABS: BASOPHIL 0.3 % (0-2.0); EOSINOPHIL 0.8 % (0-4.5); MCH 29.3 pg (25.7-33.7); MCHC 33.7 g/dl (32.0-36.0); MEAN CELL VOLUME 86.9 fl (80-96); MEAN PLT VOLUME 7.6 fl (7.5-11.1); NEUTROPHILS 62.6 % (42.8-82.8); PLATELET COUNT 279 K/MM3 (134-434); RDW 14.5 % (11.6-15.6); WHITE BLOOD COUNT 6.5 K/mm3 (4.0-10.0)
[2017-01-14 07:41] LABS: ALBUMIN 3.1 g/dl (3.4-5.0); ANION GAP 9 (8-16); CALCIUM 8.9 mg/dL (8.5-10.1); CO2 28 mmol/L (21-32); GLUCOSE,RANDOM 110 mg/dL (74-106)
[2017-01-14 07:43] LABS: ALK PHOS 68 U/L (45-117); BILIRUBIN,TOTAL 0.5 mg/dL (0.2-1.0); COCKROFT - GAULT 87.125; CREATININE 0.6 mg/dL (0.55-1.02); SGOT/AST 10 U/L (15-37); SGPT/ALT 14 U/L (12-78); TOT PROT 6.7 g/dl (6.4-8.2)
--- NOTE | 2017-01-14 10:41 | PN ---
Progress Note (short form) - Note Progress Note: GI Note: It appears that Dr Hernández has consulted so will cancel consult with Dr Bedoya. 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
--- NOTE | 2017-01-14 12:20 | PN ---
GI Progress Note Subjective: GI NOte: Eating low residue diet and having BMs but has been having cramp LLQ pain and increased residue in her urine as is reflected by her urine culture. This strongly suggests a colovesical fistula and the need for surgery RENE. - Objective Vital Signs: Vital Signs Temperature 97.9 F 01/14/17 09:58 Pulse Rate 89 01/14/17 09:58 Respiratory Rate 20 01/14/17 09:58 Blood Pressure 134/80 01/14/17 09:58 O2 Sat by Pulse Oximetry (%) 98 01/13/17 21:00 Constitutional: Anxious ...Auscultate: Yes: Normoactive Bowel Sounds ...Palpate: Yes: Soft, Tenderness (suprapubic) Labs: CBC, BMP 01/14/17 05:40 01/14/17 05:40 INR, PTT INR 1.09 (0.82-1.09) 01/11/17 19:41 Assessment/Plan Diverticular abscesses with colovesical and colocutaneous fistulae and risk for sepsis. Dr Hernández is planning the surgery. Will ask ID to consult. Problem List - Problems (1) [place]-vesical fistula Code(s): N32.1 - VESICOINTESTINAL FISTULA (2) Colocutaneous fistula Code(s): K63.2 - FISTULA OF INTESTINE (3) Weight loss Code(s): R63.4 - ABNORMAL WEIGHT LOSS
--- NOTE | 2017-01-14 13:15 | PN ---
Physical Exam: SUBJECTIVE: Patient seen and examined. States she feels well, denies any chest pain. Having intermittent abdominal pain relieved with Dilaudid. OBJECTIVE: Noted to have low grade fevers today ID consulted Blood cultures ordered, repeated urine culture Vital Signs Period Temp Pulse Resp BP Sys/Lowry Pulse Ox Last 24 Hr 97.9 F-99.5 F 87-103 18-20 108-134/68-81 98-98 GENERAL: Awake, alert, and fully oriented, in no acute distress. HEAD: Normal with no signs of trauma. EYES: Pupils equal, round and reactive to light, extraocular movements intact, sclera anicteric, conjunctiva clear. No lid lag. EARS, NOSE, THROAT: Moist mucous membranes. Entire tongue covered with white coating, likely thrush LUNGS: Breath sounds equal, clear to auscultation bilaterally. No wheezes. HEART: Regular rate and rhythm ABDOMEN: lower abdomen with two small fistulas which are draining light brown liquid into bag; no erythema to surrounding skin. MUSCULOSKELETAL: Normal range of motion at all joints. No bony deformities or tenderness. No CVA tenderness. UPPER EXTREMITIES: 2+ pulses, warm, well-perfused. No cyanosis. No clubbing. No peripheral edema. LOWER EXTREMITIES: 2+ pulses, warm, well-perfused. No calf tenderness. No peripheral edema. NEUROLOGICAL: Normal speech. Normal gait. PSYCHIATRIC: Cooperative. Good eye contact. Appropriate mood and affect. Laboratory Results - last 24 hr 01/14/17 01/14/17 05:40 05:40 WBC 6.5 RBC 4.32 Hgb 12.6 Hct 37.5 MCV 86.9 MCHC 33.7 RDW 14.5 Plt Count 279 MPV 7.6 Neutrophils % 62.6 Lymphocytes % 26.3 Monocytes % 10.0 Eosinophils % 0.8 Basophils % 0.3 Sodium 143 Potassium 4.4 Chloride 106 Carbon Dioxide 28 Anion Gap 9 BUN 8 Creatinine 0.6 Creat Clearance w eGFR > 60 Random Glucose 110 H Calcium 8.9 Total Bilirubin 0.5 D AST 10 L D ALT 14 D Alkaline Phosphatase 68 Total Protein 6.7 Albumin 3.1 L Active Medications Generic Name Dose Route Start Last Admin Trade Name Freq PRN Reason Stop Dose Admin Docusate Sodium 100 mg 01/12/17 22:00 01/14/17 05:29 Colace - PO 100 mg TID ERIK Administration Heparin Sodium (Porcine) 5,000 unit 01/12/17 06:00 01/14/17 05:30 Heparin - SQ Not Given TID ERIK Hydromorphone HCl 0.5 mg 01/13/17 09:15 01/14/17 08:56 Dilaudid Injection - IVPUSH 0.5 mg Q4H PRN Administration PAIN Levofloxacin 100 mls @ 100 mls/hr 01/12/17 22:00 01/13/17 21:11 Levaquin 500 Mg Premixed Ivpb - IVPB 100 mls/hr HS ERIK Administration Sodium Chloride 1,000 mls @ 100 mls/hr 01/12/17 03:00 01/14/17 03:30 Normal Saline - IV 100 mls/hr ASDIR ERIK Administration Metronidazole 100 mls @ 100 mls/hr 01/12/17 06:00 01/14/17 09:57 Flagyl 500mg Premixed Ivpb - IVPB 100 mls/hr Q8H-IV ERIK Administration Nystatin 500,000 units 01/12/17 06:00 01/14/17 05:29 Nystatin Oral Suspension - PO 500,000 units Q6HPO ERIK Administration Ondansetron HCl 4 mg 01/12/17 02:42 01/12/17 03:20 Zofran Injection IVPB 4 mg Q6H PRN Administration NAUSEA ASSESSMENT/PLAN: Patient is a 56 year old female with a past medical history of diverticulitis with abscess and fistula formulation, multiple diverticular abscesses that required drains. She presented to the ER on 01/11/2017 with abdominal pain and with complaints of "bubbles from vaginal area". She had a planned outpatient abdominal surgery but unable to afford procedure secondary to insurance. She saw Dr Lainez who advised her to come to the hospital. She has lost an average of 20lbs since July 2016. Imaging: CT abdomen/pelvis 01/12/2017: in comparison to study 12/20/2016 small pericolonic abscess along the ventral border of the sigmoid colon appears mildly increased in size currently measuring 2cm in diameter was 1.5cm a pericolonic abscess along the inferior border of the sigmoid colon appears slightly dim. in size A 1.7 cm abscess is noted with the cul de sac previous measuring 2cm A sigmoid cutaneous fistula appears slightly increased in size A second sigmoid-cutaneous fistula more inferiorly appears unchanged Interval appearance of a small amount of air is seen within the urinary bladder lumen due to recent cath versus development of colovesicul fistula GI: Diverticulitis with abdominal wall fistula with possible new colovesical fistula as per CT Assessment/Plan: Surgical noted reviewed Advance diet as per surgery Monitor output from fistula Surgical/GI following On Flagyl and Levaquin ID: Sepsis risk Possible new colovesical fistula as per CT Assessment/Plan: patient now having low grade fevers ID consulted On Levaquin and Flagyl Blood cultures ordered, repeated urine culture Muscular/Skeletal Abnormal weight loss - chronic Assessment/Plan: likely secondary to multiple fistulas, poor appetite Will consult RD, Monitor weights oral thrush - on nystatin F.E.N: iet, RD consult to assess if pt is candidate for PPN - monitor weights Fluids: NS @ 100cc/hr Eletrolyges Nutrition: advance as per surgery Prophylaxis: GI: deferred DVT:Heparin TID Dispo: Pt currently requires inpatient management of her emergent condition. Full Code. Visit type - Emergency Visit Emergency Visit: Yes ED Registration Date: 01/11/17 Care time: The patient presented to the Emergency Department on the above date and was hospitalized for further evaluation of their emergent condition. - New Patient This patient is new to me today: No - Critical Care Critical Care patient: No - Discharge Referral Referred to [facility] Med P.C.: No
--- NOTE | 2017-01-14 15:53 | PN ---
Progress Note (short form) - Note Progress Note: ID Consult dictated Colocutaneous, possible colovesicular/ colovaginal fistulae Low grade temp Hx ESBL wound c/s No evidence for systemic infection at this time Will obtain blood c/s Continue levaquin / flagyl Surgical mgt of fistulae
--- NOTE | 2017-01-14 18:53 | CONS ---
DATE OF CONSULTATION: DATE OF DICTATION: 01/14/2017 INFECTIOUS DISEASE CONSULTATION HISTORY OF PRESENT ILLNESS: The patient is a 56-year-old female who was evaluated for possible sepsis. Patient has a complicated recent past medical history. She was diagnosed with acute complicated diverticulitis in [place] in late 2015. She required a percutaneous drainage of a diverticular abscess. The patient was admitted to [facility] in September of 2016 at which time she was diagnosed with a colovesical fistula. A wound culture at that time was positive for ESBL. She was treated with a course of Levaquin and Flagyl. She was percutaneously drained and subsequently discharged to be managed as an outpatient. She reports that since that time, she has had persistent drainage from a colocutaneous fistula. She had been followed up by surgery as an outpatient and had had CAT scans. Surgery for repair of the fistula was planned. She is now admitted with worsening lower abdominal pain, especially left lower quadrant pain. She experiences more severe pain with defecation. She continues to have drainage from a colocutaneous fistula. Patient now reports developing fecaloid drainage and pneumaturia suggestive of a colovesicular fistula. Her hospital course has been complicated with temperature to 100. Her white blood cell count is normal. PAST MEDICAL HISTORY: As above. ALLERGIES: PROTONIX. LABORATORY DATA: White count 6.5, creatinine 0.6, urinalysis 3291 white cells. CAT scan shows decreased abdominal collection with evidence of enterocutaneous fistulae. PHYSICAL EXAMINATION: General: She is awake and alert. She is not acutely toxic appearing. Vital signs: Temperature 100, blood pressure 128/82, pulse 110, respirations 20 per minute. HEENT: Sclerae anicteric. Cardiovascular: Heart sounds S1, S2. Respiratory: Lungs clear. Abdomen: Soft. There is a colostomy bag present over an enterocutaneous fistula which appears to be draining chocolate Ensure, which the patient has been drinking. Extremities: Negative for edema. IMPRESSION: 1. Colocutaneous fistula now possible colovesicular and colovaginal fistulae. 2. Low grade temperature. 3. History of extended-spectrum beta-lactamase in wound culture. No evidence for systemic infection at this time. Will obtain blood cultures in light of low grade fever. Continue Levaquin and Flagyl. Surgical management of above mentioned fistulae. Contact precautions for prior history of ESBL. Thank you for the kind referral. CANDIDO WILLIAMSON M.D. [id number]
[2017-01-14] MEDS ORDERED: ACETAMINOPHEN 325 MG TABLET (FP) ONE (19:04)
[2017-01-14] MEDS: ACETAMINOPHEN 325 MG TABLET (FP) PO PRN (19:30)
[2017-01-14] MEDS: LEVOFLOXACIN 500 MG IVPB 100 ML IVPB SCH (21:03)
[2017-01-15] MEDS: NYSTATIN 500,000 UNITS/5 ML SUSPENSION PO SCH ×5 (00:25→23:49)
[2017-01-15] MEDS: METRONIDAZOLE 500 MG PREMIXED 100 ML IVPB SCH ×3 (02:17→17:20)
[2017-01-15] MEDS: DOCUSATE SODIUM 100 MG CAPSULE (FP) PO SCH ×3 (05:21→22:06)
[2017-01-15] MEDS: HEPARIN NA (PORCINE) 5,000 UNITS/ML 1ML VIAL SQ SCH ×3 (05:21→22:08)
[2017-01-15] MEDS: SODIUM CHLORIDE 1,000 ML IV SCH (05:32)
[2017-01-15 07:14] LABS: BASOPHIL 0.3 % (0-2.0); EOSINOPHIL 0.6 % (0-4.5); MCH 28.8 pg (25.7-33.7); MCHC 32.9 g/dl (32.0-36.0); MEAN CELL VOLUME 87.5 fl (80-96); MEAN PLT VOLUME 7.9 fl (7.5-11.1); NEUTROPHILS 62.3 % (42.8-82.8); PLATELET COUNT 272 K/MM3 (134-434); RDW 14.6 % (11.6-15.6); WHITE BLOOD COUNT 6.2 K/mm3 (4.0-10.0)
[2017-01-15 07:31] LABS: ALBUMIN 2.9 g/dl (3.4-5.0); ANION GAP 8 (8-16); CO2 29 mmol/L (21-32); GLUCOSE,RANDOM 109 mg/dL (74-106); SGOT/AST 8 U/L (15-37); SGPT/ALT 11 U/L (12-78)
[2017-01-15 07:33] LABS: ALK PHOS 67 U/L (45-117); BILIRUBIN,TOTAL 0.4 mg/dL (0.2-1.0); COCKROFT - GAULT 87.125; CREATININE 0.6 mg/dL (0.55-1.02); TOT PROT 6.5 g/dl (6.4-8.2)
[2017-01-15] MEDS: HYDROmorphone HCL CARPU-JECT 1 MG/1 ML DISP.SYRIN IVPUSH PRN (08:06)
[2017-01-15] MEDS ORDERED: PT OWN MED DRAWER 7, Y5N ONE (08:56)
--- NOTE | 2017-01-15 09:10 | PN ---
Progress Note (short form) - Note Progress Note: pre-op planning for lt j-stent insertion then rosalba's procedure on 01/17. medical optimization / clearance
--- NOTE | 2017-01-15 10:44 | PN ---
GI Progress Note Subjective: No acute events Some lower abdominal pain - Objective Vital Signs: Vital Signs Temperature 97.9 F 01/15/17 05:54 Pulse Rate 78 01/15/17 05:54 Respiratory Rate 18 01/15/17 05:54 Blood Pressure 118/79 01/15/17 05:54 O2 Sat by Pulse Oximetry (%) 96 01/14/17 21:00 Constitutional: Calm Eyes: No: Sclera Icterus Cardiovascular: Yes: Regular Rate and Rhythm Respiratory: Yes: CTA Bilaterally Gastrointestinal Inspection: No: Distention ...Auscultate: Yes: Normoactive Bowel Sounds ...Palpate: Yes: Tenderness (TTP pelvis / LLQ, + ostomy in place at site of draining colocutaneous fistulae) ...Percussion: No: Tympanitic Edema: No Neurological: Yes: Alert, Oriented Labs: CBC, BMP 01/15/17 05:35 01/15/17 05:35 INR, PTT INR 1.09 (0.82-1.09) 01/11/17 19:41 Hepatic Panel Total Bilirubin 0.4 mg/dL (0.2-1.0) 01/15/17 05:35 AST 8 U/L (15-37) L 01/15/17 05:35 ALT 11 U/L (12-78) L D 01/15/17 05:35 Alkaline Phosphatase 67 U/L (45-117) 01/15/17 05:35 Albumin 2.9 g/dl (3.4-5.0) L 01/15/17 05:35 Problem List - Problems (1) Diverticulitis of intestine with perforation and abscess Assessment/Plan: Complicated acute diverticulitis On Abx per ID Plan for rosalba's procedure this week per surgery with urology eval Code(s): K57.80 - DVTRCLI OF INTEST, PART UNSP, W PERF AND ABSCESS W/O BLEED
[2017-01-15] MEDS ORDERED: oxyCODONE HCL 5 MG TABLET PO PRN (12:06)
[2017-01-15] MEDS: ACETAMINOPHEN 325 MG TABLET (FP) PO PRN ×2 (12:13→22:06)
[2017-01-15] MEDS: oxyCODONE HCL 5 MG TABLET PO PRN ×2 (14:45→22:06)
--- NOTE | 2017-01-15 17:28 | PN ---
Physical Exam: SUBJECTIVE: Patient seen and examined. States she feels well. OBJECTIVE: For surgery with Dr. Hernández on 01/17/2017 for planned lt j-stent insertion/ rosalba's procedure Vital Signs Period Temp Pulse Resp BP Sys/Lowry Pulse Ox Last 24 Hr 97.9 F-99.6 F 78-103 18-20 107-123/59-82 96-96 GENERAL: Awake, alert, and fully oriented, in no acute distress. HEAD: Normal with no signs of trauma. EYES: Pupils equal, round and reactive to light, extraocular movements intact, sclera anicteric, conjunctiva clear. No lid lag. EARS, NOSE, THROAT: Moist mucous membranes. Entire tongue covered with white coating, likely thrush LUNGS: Breath sounds equal, clear to auscultation bilaterally. No wheezes. HEART: Regular rate and rhythm ABDOMEN: lower abdomen with two small fistulas which are draining light brown liquid into bag; no erythema to surrounding skin. MUSCULOSKELETAL: Normal range of motion at all joints. No bony deformities or tenderness. No CVA tenderness. UPPER EXTREMITIES: 2+ pulses, warm, well-perfused. No cyanosis. No clubbing. No peripheral edema. LOWER EXTREMITIES: 2+ pulses, warm, well-perfused. No calf tenderness. No peripheral edema. NEUROLOGICAL: Normal speech. Normal gait. PSYCHIATRIC: Cooperative. Good eye contact. Appropriate mood and affect. Laboratory Results - last 24 hr 01/15/17 01/15/17 05:35 05:35 WBC 6.2 RBC 4.36 Hgb 12.6 Hct 38.2 MCV 87.5 MCHC 32.9 RDW 14.6 Plt Count 272 MPV 7.9 Neutrophils % 62.3 Lymphocytes % 24.2 Monocytes % 12.6 H Eosinophils % 0.6 Basophils % 0.3 Sodium 142 Potassium 4.2 Chloride 105 Carbon Dioxide 29 Anion Gap 8 BUN 8 Creatinine 0.6 Creat Clearance w eGFR > 60 Random Glucose 109 H Calcium 9.0 Total Bilirubin 0.4 AST 8 L ALT 11 L D Alkaline Phosphatase 67 Total Protein 6.5 Albumin 2.9 L Active Medications Generic Name Dose Route Start Last Admin Trade Name Freq PRN Reason Stop Dose Admin Acetaminophen 650 mg 01/14/17 19:02 01/15/17 12:13 Tylenol - PO 650 mg Q6H PRN Administration FEVER OR PAIN Docusate Sodium 100 mg 01/12/17 22:00 01/15/17 13:26 Colace - PO 100 mg TID ERIK Administration Heparin Sodium (Porcine) 5,000 unit 01/12/17 06:00 01/15/17 13:27 Heparin - SQ Not Given TID ERIK Levofloxacin 100 mls @ 100 mls/hr 01/12/17 22:00 01/14/17 21:03 Levaquin 500 Mg Premixed Ivpb - IVPB 100 mls/hr HS ERIK Administration Sodium Chloride 1,000 mls @ 100 mls/hr 01/12/17 03:00 01/15/17 05:32 Normal Saline - IV 100 mls/hr ASDIR ERIK Administration Metronidazole 100 mls @ 100 mls/hr 01/12/17 06:00 01/15/17 17:20 Flagyl 500mg Premixed Ivpb - IVPB 100 mls/hr Q8H-IV ERIK Administration Nystatin 500,000 units 01/12/17 06:00 01/15/17 17:19 Nystatin Oral Suspension - PO 500,000 units Q6HPO ERIK Administration Ondansetron HCl 4 mg 01/12/17 02:42 01/12/17 03:20 Zofran Injection IVPB 4 mg Q6H PRN Administration NAUSEA Oxycodone HCl 10 mg 01/15/17 13:30 01/15/17 14:45 Roxicodone - PO 01/16/17 12:05 10 mg Q4H PRN Administration PAIN ASSESSMENT/PLAN: Patient is a 56 year old female with a past medical history of diverticulitis with abscess and fistula formulation, multiple diverticular abscesses that required drains. She presented to the ER on 01/11/2017 with abdominal pain and with complaints of "bubbles from vaginal area". She had a planned outpatient abdominal surgery but unable to afford procedure secondary to insurance. She saw Dr Lainez who advised her to come to the hospital. She has lost an average of 20lbs since July 2016. Imaging: CT abdomen/pelvis 01/12/2017: in comparison to study 12/20/2016 small pericolonic abscess along the ventral border of the sigmoid colon appears mildly increased in size currently measuring 2cm in diameter was 1.5cm a pericolonic abscess along the inferior border of the sigmoid colon appears slightly dim. in size A 1.7 cm abscess is noted with the cul de sac previous measuring 2cm A sigmoid cutaneous fistula appears slightly increased in size A second sigmoid-cutaneous fistula more inferiorly appears unchanged Interval appearance of a small amount of air is seen within the urinary bladder lumen due to recent cath versus development of colovesicul fistula GI: Diverticulitis with abdominal wall fistula with possible new colovesical fistula as per CT Assessment/Plan: Surgical noted reviewed Lt stent insertion then rosalba's procedure on 01/17 Monitor output from fistula Surgical/GI following On Flagyl and Levaquin ID: Sepsis risk Possible new colovesical fistula as per CT Assessment/Plan: ID consulted On Levaquin and Flagyl Blood cultures ordered, repeated urine culture as it continues to be reported as contaminated Muscular/Skeletal Abnormal weight loss - chronic Assessment/Plan: likely secondary to multiple fistulas, poor appetite Will consult RD, Monitor weights oral thrush - on nystatin F.E.N: RD consult to assess if pt is candidate for PPN - monitor weights Fluids: NS @ 100cc/hr Eletrolyges Nutrition: advance as per surgery Prophylaxis: GI: deferred DVT:Heparin TID Dispo: Pt currently requires inpatient management of her emergent condition. Full Code Visit type - Emergency Visit Emergency Visit: Yes ED Registration Date: 01/11/17 Care time: The patient presented to the Emergency Department on the above date and was hospitalized for further evaluation of their emergent condition. - New Patient This patient is new to me today: No - Critical Care Critical Care patient: No - Discharge Referral Referred to [facility] No
[2017-01-15] MEDS: LEVOFLOXACIN 500 MG IVPB 100 ML IVPB SCH (22:09)
[2017-01-16] MEDS: METRONIDAZOLE 500 MG PREMIXED 100 ML IVPB SCH ×3 (01:30→17:46)
[2017-01-16] MEDS: SODIUM CHLORIDE 1,000 ML IV SCH (03:29)
[2017-01-16] MEDS: oxyCODONE HCL 5 MG TABLET PO PRN ×4 (04:35→18:28)
[2017-01-16] MEDS: ACETAMINOPHEN 325 MG TABLET (FP) PO PRN ×3 (04:36→18:29)
[2017-01-16] MEDS: HEPARIN NA (PORCINE) 5,000 UNITS/ML 1ML VIAL SQ SCH ×3 (05:18→21:07)
[2017-01-16] MEDS: NYSTATIN 500,000 UNITS/5 ML SUSPENSION PO SCH ×3 (05:18→17:46)
[2017-01-16] MEDS: DOCUSATE SODIUM 100 MG CAPSULE (FP) PO SCH ×3 (05:18→21:05)
--- NOTE | 2017-01-16 08:02 | SPA.PREOP ---
Addendum entered and electronically signed by Saud Brownlee PA 01/16/17 11:15: Due to change in case start time...now 1PM, Dr. Salomon isn't able to help with the initial part of the surgery. I spoke with Dr. Garry Ortega and he will now perform the LEFT URETERAL STENTING. OR Booking made aware. Original Note: - PRE-OP NOTE Dx: Acute sigmoid diverticulitis Planned Procedure: Insertion of LEFT ureteral J-sten; Gardenia's procedure Surgeon: Yfn Salomon & Best Hernández Consent: TO be obrained by surgeons risks, benefits and alternatives explained to the patient. Last Vital Signs Temp Pulse Resp BP Pulse Ox 98.9 F 77 18 115/73 99 01/16/17 05:19 01/16/17 05:19 01/16/17 05:19 01/16/17 05:19 01/15/17 20:33 Lab Results WBC 6.2 K/mm3 (4.0-10.0) 01/15/17 05:35 RBC 4.36 M/mm3 (3.60-5.2) 01/15/17 05:35 Hgb 12.6 GM/dL (10.7-15.3) 01/15/17 05:35 Hct 38.2 % (32.4-45.2) 01/15/17 05:35 MCV 87.5 fl (80-96) 01/15/17 05:35 MCHC 32.9 g/dl (32.0-36.0) 01/15/17 05:35 RDW 14.6 % (11.6-15.6) 01/15/17 05:35 Plt Count 272 K/MM3 (134-434) 01/15/17 05:35 Sodium 142 mmol/L (136-145) 01/15/17 05:35 Potassium 4.2 mmol/L (3.5-5.1) 01/15/17 05:35 Chloride 105 mmol/L (98-107) 01/15/17 05:35 Carbon Dioxide 29 mmol/L (21-32) 01/15/17 05:35 Anion Gap 8 (8-16) 01/15/17 05:35 BUN 8 mg/dL (7-18) 01/15/17 05:35 Creatinine 0.6 mg/dL (0.55-1.02) 01/15/17 05:35 Random Glucose 109 mg/dL (74-106) H 01/15/17 05:35 Calcium 9.0 mg/dL (8.5-10.1) 01/15/17 05:35 Blood Type A POSITIVE 01/11/17 19:43 Antibody Screen Negative 01/11/17 19:32 INR 1.09 (0.82-1.09) 01/11/17 19:41 - IMAGING Chest X-ray: Report Reviewed, Image Reviewed EKG: Report Reviewed, Image Reviewed - ASSESSMENT/PLAN 1. Make NPO after midnight except po meds 2. GI/DVT PPX 3. Medical optimization / clearance 4. Can continue with clear liquid diet for today Visit type - Case Type Case Type: ED Admission
[2017-01-16 08:05] LABS: BASOPHIL 0.4 % (0-2.0); EOSINOPHIL 0.6 % (0-4.5); MCHC 33.4 g/dl (32.0-36.0); MEAN CELL VOLUME 86.9 fl (80-96); MEAN PLT VOLUME 7.7 fl (7.5-11.1); NEUTROPHILS 60.3 % (42.8-82.8); PLATELET COUNT 272 K/MM3 (134-434); RDW 14.4 % (11.6-15.6); WHITE BLOOD COUNT 5.8 K/mm3 (4.0-10.0)
[2017-01-16 08:36] LABS: ALBUMIN 2.8 g/dl (3.4-5.0); ANION GAP 9 (8-16); CALCIUM 8.7 mg/dL (8.5-10.1); CO2 28 mmol/L (21-32); GLUCOSE,RANDOM 102 mg/dL (74-106)
[2017-01-16 08:40] LABS: ALK PHOS 57 U/L (45-117); BILIRUBIN,TOTAL 0.5 mg/dL (0.2-1.0); CREATININE 0.5 mg/dL (0.55-1.02); SGOT/AST 9 U/L (15-37); SGPT/ALT 10 U/L (12-78); TOT PROT 6.1 g/dl (6.4-8.2)
--- NOTE | 2017-01-16 16:18 | PN ---
Progress Note, Physician Chief Complaint: Ms Loyd says she is still with abdominal pain. No cp, sob, n/v. Says her urine is clear for the past two days. - Current Medication List Current Medications: Active Medications Acetaminophen (Tylenol -) 650 mg PO Q6H PRN PRN Reason: FEVER OR PAIN Last Admin: 01/16/17 13:32 Dose: 650 mg Docusate Sodium (Colace -) 100 mg PO TID [facility] Last Admin: 01/16/17 13:33 Dose: 100 mg Heparin Sodium (Porcine) (Heparin -) 5,000 unit SQ TID ERIK Last Admin: 01/16/17 13:33 Dose: Not Given Levofloxacin (Levaquin 500 Mg Premixed Ivpb -) 100 mls @ 100 mls/hr IVPB HS ERIK Last Admin: 01/15/17 22:09 Dose: 100 mls/hr Sodium Chloride (Normal Saline -) 1,000 mls @ 100 mls/hr IV ASDIR ERIK Last Admin: 01/16/17 03:29 Dose: 100 mls/hr Metronidazole (Flagyl 500mg Premixed Ivpb -) 100 mls @ 100 mls/hr IVPB Q8H-IV ERIK Last Admin: 01/16/17 09:34 Dose: 100 mls/hr Nystatin (Nystatin Oral Suspension -) 500,000 units PO Q6HPO ERIK Last Admin: 01/16/17 12:54 Dose: 500,000 units Ondansetron HCl (Zofran Injection) 4 mg IVPB Q6H PRN PRN Reason: NAUSEA Last Admin: 01/12/17 03:20 Dose: 4 mg Oxycodone HCl (Roxicodone -) 10 mg PO Q4H PRN PRN Reason: PAIN Last Admin: 01/16/17 13:31 Dose: 10 mg - Objective Vital Signs: Vital Signs Temperature 98.0 F 01/16/17 13:59 Pulse Rate 92 H 01/16/17 13:59 Respiratory Rate 18 01/16/17 13:59 Blood Pressure 105/70 01/16/17 13:59 O2 Sat by Pulse Oximetry (%) 99 01/16/17 10:00 Constitutional: Yes: Well Nourished, No Distress, Calm Cardiovascular: Yes: Regular Rate and Rhythm. No: Gallop, Murmur, Rub Respiratory: Yes: Regular, CTA Bilaterally. No: Rales, Rhonchi, Wheezes Gastrointestinal: Yes: Normal Bowel Sounds, Soft. No: Distention, Tenderness Extremities: Yes: WNL Edema: No Labs: CBC, BMP 01/16/17 06:20 01/16/17 06:20 INR, PTT INR 1.09 (0.82-1.09) 01/11/17 19:41 Problem List - Problems (1) [place]-vesical fistula Assessment/Plan: -presented with air and fecal matter passing through the vagina -noted fistula -planning on surgery tomorrow -continue current management Code(s): N32.1 - VESICOINTESTINAL FISTULA (2) Sepsis Assessment/Plan: -continue levaquin and flagyl Code(s): A41.9 - SEPSIS, UNSPECIFIED ORGANISM (3) Abdominal pain Assessment/Plan: -secondary to fistula -oxycodone prn Code(s): R10.9 - UNSPECIFIED ABDOMINAL PAIN
[2017-01-16] MEDS: LEVOFLOXACIN 500 MG IVPB 100 ML IVPB SCH (21:05)
[2017-01-17] MEDS: NYSTATIN 500,000 UNITS/5 ML SUSPENSION PO SCH ×4 (00:52→23:24)
[2017-01-17] MEDS: METRONIDAZOLE 500 MG PREMIXED 100 ML IVPB SCH ×3 (00:59→09:22)
[2017-01-17] MEDS: ACETAMINOPHEN 325 MG TABLET (FP) PO PRN ×2 (01:27→06:30)
[2017-01-17] MEDS: oxyCODONE HCL 5 MG TABLET PO PRN ×3 (01:27→10:38)
[2017-01-17] MEDS: SODIUM CHLORIDE 1,000 ML IV SCH (03:57)
[2017-01-17] MEDS: DOCUSATE SODIUM 100 MG CAPSULE (FP) PO SCH ×3 (05:01→22:10)
[2017-01-17] MEDS: HEPARIN NA (PORCINE) 5,000 UNITS/ML 1ML VIAL SQ SCH ×4 (05:01→21:36)
[2017-01-17 07:30] LABS: BASOPHIL 0.6 % (0-2.0); EOSINOPHIL 1.2 % (0-4.5); MCH 29.5 pg (25.7-33.7); MCHC 33.8 g/dl (32.0-36.0); MEAN CELL VOLUME 87.2 fl (80-96); MEAN PLT VOLUME 7.6 fl (7.5-11.1); NEUTROPHILS 60.3 % (42.8-82.8); PLATELET COUNT 286 K/MM3 (134-434); RDW 14.1 % (11.6-15.6); WHITE BLOOD COUNT 5.1 K/mm3 (4.0-10.0)
[2017-01-17 07:55] LABS: CALCIUM 8.6 mg/dL (8.5-10.1); COCKROFT - GAULT 104.55; CREATININE 0.5 mg/dL (0.55-1.02); PHOSPHOROUS 3.4 mg/dL (2.5-4.9)
[2017-01-17] MEDS ORDERED: ACETAMINOPHEN 325 MG TABLET (FP) PO PRN (09:32)
--- NOTE | 2017-01-17 10:44 | PN ---
Progress Note, Physician Chief Complaint: Ms Loyd says she is feeling better today. Still having some pressure like abdominal pain but says it comes and goes and is relieved by urination. Currently pain free. No cp, sob, n/v. - Current Medication List Current Medications: Active Medications Acetaminophen (Tylenol -) 650 mg PO Q4H PRN PRN Reason: FEVER OR PAIN Last Admin: 01/17/17 10:33 Dose: 650 mg Docusate Sodium (Colace -) 100 mg PO TID [facility] Last Admin: 01/17/17 05:01 Dose: Not Given Heparin Sodium (Porcine) (Heparin -) 5,000 unit SQ TID [facility] Last Admin: 01/17/17 05:01 Dose: Not Given Levofloxacin (Levaquin 500 Mg Premixed Ivpb -) 100 mls @ 100 mls/hr IVPB HS [facility] Last Admin: 01/16/17 21:05 Dose: 100 mls/hr Sodium Chloride (Normal Saline -) 1,000 mls @ 100 mls/hr IV ASDIR [facility] Last Admin: 01/17/17 03:57 Dose: 100 mls/hr Metronidazole (Flagyl 500mg Premixed Ivpb -) 100 mls @ 100 mls/hr IVPB Q8H-IV ERIK Last Admin: 01/17/17 09:22 Dose: 100 mls/hr Nystatin (Nystatin Oral Suspension -) 500,000 units PO Q6HPO [facility] Last Admin: 01/17/17 05:01 Dose: 500,000 units Ondansetron HCl (Zofran Injection) 4 mg IVPB Q6H PRN PRN Reason: NAUSEA Last Admin: 01/12/17 03:20 Dose: 4 mg Oxycodone HCl (Roxicodone -) 10 mg PO Q4H PRN PRN Reason: PAIN Last Admin: 01/17/17 10:38 Dose: 10 mg - Objective Vital Signs: Vital Signs Temperature 98.3 F 01/17/17 09:30 Pulse Rate 91 H 01/17/17 09:30 Respiratory Rate 18 01/17/17 09:30 Blood Pressure 127/76 01/17/17 09:30 O2 Sat by Pulse Oximetry (%) 98 01/16/17 21:00 Constitutional: Yes: Well Nourished, No Distress, Calm Cardiovascular: Yes: Regular Rate and Rhythm. No: Gallop, Murmur, Rub Respiratory: Yes: Regular, CTA Bilaterally. No: Rales, Rhonchi, Wheezes Gastrointestinal: Yes: Normal Bowel Sounds, Soft, Tenderness (slight, on palpation). No: Distention Extremities: Yes: WNL Edema: No Labs: CBC, BMP 01/17/17 06:30 01/17/17 06:30 INR, PTT INR 1.09 (0.82-1.09) 01/11/17 19:41 Problem List - Problems (1) [place]-vesical fistula Code(s): N32.1 - VESICOINTESTINAL FISTULA (2) Sepsis Code(s): A41.9 - SEPSIS, UNSPECIFIED ORGANISM (3) Abdominal pain Code(s): R10.9 - UNSPECIFIED ABDOMINAL PAIN Assessment/Plan (1) [place]-vesical fistula Assessment/Plan: -presented with air and fecal matter passing through the vagina -noted fistula -case d/w surgery, plan for OR today Code(s): N32.1 - VESICOINTESTINAL FISTULA (2) Sepsis Assessment/Plan: -continue levaquin and flagyl -will d/w surgery duration of antibiotics after surgical intervention Code(s): A41.9 - SEPSIS, UNSPECIFIED ORGANISM (3) Abdominal pain Assessment/Plan: -secondary to fistula -oxycodone prn Code(s): R10.9 - UNSPECIFIED ABDOMINAL PAIN
--- NOTE | 2017-01-17 12:23 | PN ---
Progress Note (short form) - Note Progress Note: Attending Surgeon Pre-op 56 y/o female w/ongoing complicated sigmoid diverticulitis since at least 06/22 will undergo open sigmoid colon resection w/ colostomy and related procedures today; r/b/t and alternative tx.'s have been d/w the patient on an ongoing basis and she is amenable to the plan as outlined; we have asked for Urology to place a left ureteral stent; once her fistulae resolve and she has regained the weight she has lost and post op imaging reveals no ongoig intra abdominal infection she will then be considered for muslim of colonic continuity; a/a /u by the patient who will give informed consent. Best Hernández MD FACS
[2017-01-17] MEDS ORDERED: MIDAZOLAM HCL 2 MG/2 ML SINGLE DOSE VIAL ONE (13:09)
[2017-01-17] MEDS ORDERED: PROPOFOL 20 ML ONE (13:10)
[2017-01-17] MEDS ORDERED: LEVOFLOXACIN 500 MG PREMIX BAG IVPB ONE (13:51)
[2017-01-17] MEDS ORDERED: HYDROmorphone HCL/PF 1 MG/ML VIAL (FOR PYXIS CHARGING ONLY) ONE ×3 (14:12→17:42)
[2017-01-17] MEDS ORDERED: IOHEXOL 300 MG/ML INFUS..BTL IV ONE (14:16)
[2017-01-17] MEDS ORDERED: NEOSTIGMINE METHYLSULFATE 0.5 MG/ML - 10 ML MDV ONE (14:59)
[2017-01-17] MEDS ORDERED: GLYCOPYRROLATE 0.2 MG/1 ML VIAL ONE (15:00)
--- NOTE | 2017-01-17 15:01 | OP ---
DATE OF OPERATION: 01/16/2017 PREOPERATIVE DIAGNOSES: Sigmoid lesion, recurrent urinary tract infection, micturition disorder. POSTOPERATIVE DIAGNOSES: Sigmoid lesion, recurrent urinary tract infection, micturition disorder. OPERATIVE PROCEDURE: Cystourethroscopy, left retrograde pyelogram, removal of lesions in the bladder, and placement of a left temporary stent. ANESTHESIA: General. Under above-stated anesthesia, patient was prepped and draped in the usual sterile manner. She was placed in the dorsal lithotomy position. Inspection of the external genitalia revealed a grade 2 cystorectocele, the vaginal mucosa was atrophic. A continuous flow 30-degree scope was introduced under direct vision. There was a large amount of inflammatory polyps at the bladder neck. The bladder was entered and urine was collected for C&S as well as cytology. Inspection of the bladder revealed multiple lesions floating in the bladder, possibly fungal balls. Using a biopsy forceps, several were removed and sent to Pathology. A flexi-tip was placed in the left ureteral orifice and 5 mL of contrast was injected. This revealed a normal left renal unit, no deviation of the ureter, no hydronephrosis, no filling defect. Afterwards, a stiff ureteral stent was passed under direct vision to the level of the upper mine. This was brought out the urethra. The cystoscope was removed. An 18-Danish Snyder was inserted. Both ureteral stents and Snyder catheter were placed to drainage. X-rays confirmed good position of the stent. A surgical procedure will follow. The patient tolerated this portion of the procedure well. Kurtis [id number]
[2017-01-17] MEDS ORDERED: ACETAMINOPHEN INJECTION 100 ML IVPB ONE (15:02)
[2017-01-17] MEDS ORDERED: ROCURONIUM BROMIDE 50 MG/5 ML VIAL ONE (15:52)
[2017-01-17] MEDS ORDERED: BENZOIN/ALOE VERA/STORAX/TOLU 58 ML BOTTLE ONE (17:22)
[2017-01-17] MEDS ORDERED: BENZOIN/ALOE VERA/STORAX/TOLU 58 ML BOTTLE TP ONE (17:24)
[2017-01-17] MEDS ORDERED: ACETAMINOPHEN 1000 MG/100 ML VIAL (NON FORMULARY) IVPB PRN (17:43)
--- NOTE | 2017-01-17 17:50 | OP ---
Operative Note - Note: Operative Date: 01/17/17 Pre-Operative Diagnosis: Acute sigmoid diverticulitis, chronic enterocutaneous fistula x2 Operation: Left ureteral stent placed by Dr. Ortega; Exploratory laparotomy, sigmoid colon resection, end colostomy. SEGUNDO drain x2. (J-stent removed fully intact at end of case) Findings: Sigmoid colon adherent to uterus. Dissected away and found abscess cavity (didn' t communicate with uterus), cultured fluid Post-Operative Diagnosis: Same as Pre-op Surgeon: Best Hernández Quoter: Saud Brownlee Anesthesiologist/CIGARETTE LIGHTER REPAIRER: Edward Victor Anesthesia: General Specimens Removed: Sigmoid colon, enterocutaneous fistula epithelized tissue & peritoneal culture Estimated Blood Loss (mls): 200 Drains & Tubes with Location: SEGUNDO x 2 RLQ Drains, Volume Out (mls): 600 (Urine pink secondary to Lt j-stent) Fluid Volume Replaced (mls): 2,500 Operative Report Dictated: Yes
--- NOTE | 2017-01-17 17:52 | SURG ---
Surgery Waste Examiner Note Waste Examiner: Saud Brownlee PA-C Date of Service: 01/17/17 Diagnosis: Acute diverticulitis, chronic enterocutaneous fistula x2 Procedure: Left ureteral stent placed by Dr. Ortega; Exploratory laparotomy, sigmoid colon resection, end colostomy. SEGUNDO drain x2. (J-stent removed fully intact at end of case) I was present for the entirety of the operative procedure. For further detail, please refer to operative report. Visit type - Case Type Case Type: ED Admission
[2017-01-17] MEDS ORDERED: HYDROmorphone HCL CARPU-JECT 2 MG/1 ML DISP.SYRIN ONE (18:00)
[2017-01-17] MEDS: HYDROmorphone HCL CARPU-JECT 1 MG/1 ML DISP.SYRIN IVPUSH PRN ×5 (18:00→18:35)
[2017-01-17] MEDS ORDERED: HYDROmorphone *PCA* 10MG/50ML DISP.SYRIN PCA SCH (18:15)
[2017-01-17] MEDS ORDERED: LORAZEPAM CARPU-JECT 2 MG/ML DISP.SYRIN ONE (18:20)
[2017-01-17] MEDS ORDERED: HYDROmorphone *PCA* 10MG/50ML DISP.SYRIN PCA ONE (18:25)
[2017-01-17] MEDS ORDERED: LORAZEPAM CARPU-JECT 2 MG/ML DISP.SYRIN IVPUSH PRN (19:08)
[2017-01-17] MEDS: LEVOFLOXACIN 500 MG IVPB 100 ML IVPB SCH (21:31)
[2017-01-18] MEDS: SODIUM CHLORIDE 1,000 ML IV SCH ×2 (06:00→21:58)
[2017-01-18] MEDS: NYSTATIN 500,000 UNITS/5 ML SUSPENSION PO SCH ×3 (06:04→17:53)
[2017-01-18] MEDS: METRONIDAZOLE 500 MG PREMIXED 100 ML IVPB SCH ×3 (06:04→17:50)
[2017-01-18] MEDS: HEPARIN NA (PORCINE) 5,000 UNITS/ML 1ML VIAL SQ SCH ×3 (06:05→22:01)
[2017-01-18] MEDS: DOCUSATE SODIUM 100 MG CAPSULE (FP) PO SCH ×3 (06:06→22:05)
[2017-01-18 07:36] LABS: BASOPHIL 0.2 % (0-2.0); EOSINOPHIL 0.1 % (0-4.5); MCH 29.7 pg (25.7-33.7); MCHC 34.7 g/dl (32.0-36.0); MEAN CELL VOLUME 85.6 fl (80-96); MEAN PLT VOLUME 7.3 fl (7.5-11.1); PLATELET COUNT 292 K/MM3 (134-434); RDW 14.2 % (11.6-15.6); WHITE BLOOD COUNT 11.7 K/mm3 (4.0-10.0)
[2017-01-18 08:01] LABS: CALCIUM 8.3 mg/dL (8.5-10.1); COCKROFT - GAULT 104.55; CREATININE 0.5 mg/dL (0.55-1.02); MAGNESIUM 1.6 mg/dL (1.8-2.4); PHOSPHOROUS 3.6 mg/dL (2.5-4.9)
--- NOTE | 2017-01-18 08:34 | PN ---
Progress Note (short form) - Note Progress Note: POD #1 Resting comfortably. Pain control via PRN meds. Hasn't been out of bed yet. Didn 't use incentive spirometer as they never provided her with one. Denies n/v/f/c , cough, CP or SOB. Last Vital Signs Temp Pulse Resp BP Pulse Ox 98.6 F 109 H 18 135/84 98 01/18/17 06:00 01/18/17 06:00 01/18/17 06:00 01/18/17 06:00 01/17/17 21:00 CBC, BMP 01/18/17 06:00 01/18/17 06:00 PE Gen: alert. nad Nose: minimal output from ngt Abd: midline incision packed open wit iodofrom dressing. 2 eliptical incisions ( old enterocutaneous tracts) open and packed with iodoform. SEGUNDO x 2 RLQ (serosang). LLQ ostomy viable (pink & protruding) : UOP > 30 mL/hr LE: SCD b/l. soft. NT. Problem List - Problems (1) Diverticulitis of intestine with perforation and abscess Assessment/Plan: POD #1 s/p Left ureteral stent placed by Dr. Ortega; Exploratory laparotomy, sigmoid colon resection, end colostomy. SEGUNDO drain x2. (J-stent removed fully intact at end of case) Intra-op findings --> Sigmoid colon adherent to uterus. Dissected away and found abscess cavity (didn't communicate with uterus). NGT dc'd Snyder dc'd Out of bed and ambulate Incentive spirometer CBC, BMP in AM GI / DVT PPX Ostomy care RN NPO until ostomy starts to function Code(s): K57.80 - DVTRCLI OF INTEST, PART UNSP, W PERF AND ABSCESS W/O BLEED (2) Colocutaneous fistula Code(s): K63.2 - FISTULA OF INTESTINE
--- NOTE | 2017-01-18 12:11 | PN ---
Progress Note, Physician Chief Complaint: Ms Loyd says she is hanging in there, is having pain secondary to surgery. She denies cp and sob. - Current Medication List Current Medications: Active Medications Acetaminophen (Tylenol -) 650 mg PO Q4H PRN PRN Reason: FEVER OR PAIN Docusate Sodium (Colace -) 100 mg PO TID [facility] Last Admin: 01/18/17 06:06 Dose: Not Given Heparin Sodium (Porcine) (Heparin -) 5,000 unit SQ TID [facility] Last Admin: 01/18/17 06:05 Dose: Not Given Hydromorphone HCl (Dilaudid Wood And Hardware Outfitter -) 10 mg HEAD WAITER HEAD WAITER ERIK PRN Reason: Protocol Stop: 01/24/17 18:04 Last Admin: 01/17/17 18:33 Dose: 10 mg Metronidazole (Flagyl 500mg Premixed Ivpb -) 100 mls @ 100 mls/hr IVPB Q8H-IV [facility] Last Admin: 01/18/17 09:05 Dose: 100 mls/hr Levofloxacin (Levaquin 500 Mg Premixed Ivpb -) 100 mls @ 100 mls/hr IVPB HS [facility] Last Admin: 01/17/17 21:31 Dose: 100 mls/hr Sodium Chloride (Normal Saline -) 1,000 mls @ 100 mls/hr IV ASDIR [facility] Last Admin: 01/18/17 06:00 Dose: 100 mls/hr Lorazepam (Ativan Injection -) 0.5 mg IVPUSH ONCE PRN PRN Reason: AGITATION Stop: 01/18/17 19:09 Nystatin (Nystatin Oral Suspension -) 500,000 units PO Q6HPO [facility] Last Admin: 01/18/17 11:37 Dose: 500,000 units Ondansetron HCl (Zofran Injection) 4 mg IVPB Q6H PRN PRN Reason: NAUSEA - Objective Vital Signs: Vital Signs Temperature 98.2 F 01/18/17 10:00 Pulse Rate 107 H 01/18/17 10:00 Respiratory Rate 18 01/18/17 10:00 Blood Pressure 144/76 01/18/17 10:00 O2 Sat by Pulse Oximetry (%) 98 01/18/17 09:00 Constitutional: Yes: Well Nourished, No Distress, Calm Cardiovascular: Yes: Regular Rate and Rhythm. No: Gallop, Murmur, Rub Respiratory: Yes: Regular, CTA Bilaterally. No: Rales, Rhonchi, Wheezes Gastrointestinal: Yes: Hypoactive Bowel Sounds, Tenderness, Other (multiple drains in place, colostomy bag). No: Distention Extremities: Yes: WNL Edema: No Labs: CBC, BMP 01/18/17 06:00 01/18/17 06:00 INR, PTT INR 1.09 (0.82-1.09) 01/11/17 19:41 Problem List - Problems (1) [place]-vesical fistula Code(s): N32.1 - VESICOINTESTINAL FISTULA (2) Sepsis Code(s): A41.9 - SEPSIS, UNSPECIFIED ORGANISM (3) Abdominal pain Code(s): R10.9 - UNSPECIFIED ABDOMINAL PAIN Assessment/Plan (1) [place]-vesical fistula Assessment/Plan: -s/p surgery with colostomy and drains placed -case d/w surgery -continue pain management -diet per surgery Code(s): N32.1 - VESICOINTESTINAL FISTULA (2) Sepsis Assessment/Plan: -continue levaquin and flagyl -monitor cbc for leukocytosis Code(s): A41.9 - SEPSIS, UNSPECIFIED ORGANISM (3) Abdominal pain Assessment/Plan: -secondary to surgery -on sheet metal work furnace installer -monitor for improvement Code(s): R10.9 - UNSPECIFIED ABDOMINAL PAIN (4) Hypomagnesemia -give IV magnesium today -recheck in am
[2017-01-18] MEDS ORDERED: HYDROmorphone *PCA* 10MG/50ML DISP.SYRIN PCA SCH (12:17)
[2017-01-18] MEDS ORDERED: MAGNESIUM SULF 50% (8.12 MEQ/2 ML-1 GM VIAL) IVPB ONE (12:30)
--- NOTE | 2017-01-18 15:06 | PN ---
Progress Note, Physician Chief Complaint: Pt. is having mota that is inadequately controlled with current meds. No GA complaints. - Current Medication List Current Medications: Active Medications Acetaminophen (Tylenol -) 650 mg PO Q4H PRN PRN Reason: FEVER OR PAIN Docusate Sodium (Colace -) 100 mg PO TID [facility] Last Admin: 01/18/17 13:14 Dose: Not Given Heparin Sodium (Porcine) (Heparin -) 5,000 unit SQ TID [facility] Last Admin: 01/18/17 13:12 Dose: Not Given Hydromorphone HCl (Dilaudid Electrician Crane Maintenance -) 10 mg HERB DOCTOR HERB DOCTOR ERIK PRN Reason: Protocol Stop: 01/24/17 18:04 Last Admin: 01/18/17 12:30 Dose: 10 mg Metronidazole (Flagyl 500mg Premixed Ivpb -) 100 mls @ 100 mls/hr IVPB Q8H-IV [facility] Last Admin: 01/18/17 09:05 Dose: 100 mls/hr Levofloxacin (Levaquin 500 Mg Premixed Ivpb -) 100 mls @ 100 mls/hr IVPB HS [facility] Last Admin: 01/17/17 21:31 Dose: 100 mls/hr Sodium Chloride (Normal Saline -) 1,000 mls @ 100 mls/hr IV ASDIR [facility] Last Admin: 01/18/17 06:00 Dose: 100 mls/hr Lorazepam (Ativan Injection -) 0.5 mg IVPUSH ONCE PRN PRN Reason: AGITATION Stop: 01/18/17 19:09 Nystatin (Nystatin Oral Suspension -) 500,000 units PO Q6HPO [facility] Last Admin: 01/18/17 11:37 Dose: 500,000 units Ondansetron HCl (Zofran Injection) 4 mg IVPB Q6H PRN PRN Reason: NAUSEA - Objective Vital Signs: Vital Signs Temperature 99.4 F 01/18/17 14:00 Pulse Rate 103 H 01/18/17 14:00 Respiratory Rate 20 01/18/17 14:00 Blood Pressure 135/76 01/18/17 14:00 O2 Sat by Pulse Oximetry (%) 98 01/18/17 09:00 Constitutional: Yes: Well Nourished, No Distress, Calm Musculoskeletal: Yes: WNL Neurological: Yes: WNL, Alert, Oriented ...Motor Strength: WNL Labs: CBC, BMP 01/18/17 06:00 01/18/17 06:00 INR, PTT INR 1.09 (0.82-1.09) 01/11/17 19:41 Assessment/Plan POD#1 s/p Cysto with stent, sigmoid resection with colostomy under GA. Doing well. Increase Dilaudid HERB DOCTOR dose to 0.4mg q6min. Start Ofirmev 750mg q6h prn.
[2017-01-18] MEDS ORDERED: ACETAMINOPHEN 1000 MG/100 ML VIAL (NON FORMULARY) IVPB PRN (15:15)
[2017-01-18] MEDS: HYDROmorphone *PCA* 10MG/50ML DISP.SYRIN PCA SCH (15:31)
--- NOTE | 2017-01-18 17:00 | PN ---
GI Progress Note Subjective: GI: Surgical efforts are appreciated. Has LLQ colostomy. Managing pain with FELLER OPERATOR. - Objective Vital Signs: Vital Signs Temperature 99.4 F 01/18/17 14:00 Pulse Rate 102 H 01/18/17 15:31 Respiratory Rate 18 01/18/17 15:31 Blood Pressure 135/80 01/18/17 15:31 O2 Sat by Pulse Oximetry (%) 98 01/18/17 09:00 Gastrointestinal Inspection: Yes: Other (bandages in place- not removed, LLQ colostomy has small amount of blood only) ...Auscultate: Yes: No Bowel Sounds Labs: CBC, BMP 01/18/17 06:00 01/18/17 06:00 INR, PTT INR 1.09 (0.82-1.09) 01/11/17 19:41 Assessment/Plan Day 1 s/p [place] procedure with take down of fistulae. Postop management as per surgical team. Problem List - Problems (1) [place]-vesical fistula Code(s): N32.1 - VESICOINTESTINAL FISTULA (2) Colocutaneous fistula Code(s): K63.2 - FISTULA OF INTESTINE (3) Weight loss Code(s): R63.4 - ABNORMAL WEIGHT LOSS
[2017-01-18] MEDS: LEVOFLOXACIN 500 MG IVPB 100 ML IVPB SCH (21:58)
[2017-01-19] MEDS: METRONIDAZOLE 500 MG PREMIXED 100 ML IVPB SCH ×3 (01:12→17:42)
[2017-01-19] MEDS: NYSTATIN 500,000 UNITS/5 ML SUSPENSION PO SCH ×4 (01:12→17:42)
[2017-01-19] MEDS: HYDROmorphone *PCA* 10MG/50ML DISP.SYRIN PCA SCH (01:53)
[2017-01-19] MEDS: DOCUSATE SODIUM 100 MG CAPSULE (FP) PO SCH ×3 (06:26→22:22)
[2017-01-19] MEDS: HEPARIN NA (PORCINE) 5,000 UNITS/ML 1ML VIAL SQ SCH ×3 (06:26→22:22)
[2017-01-19 07:29] LABS: BASOPHIL 0.2 % (0-2.0); EOSINOPHIL 0.2 % (0-4.5); MCHC 33.5 g/dl (32.0-36.0); MEAN CELL VOLUME 86.7 fl (80-96); MEAN PLT VOLUME 7.4 fl (7.5-11.1); NEUTROPHILS 79.5 % (42.8-82.8); PLATELET COUNT 286 K/MM3 (134-434); RDW 14.3 % (11.6-15.6); WHITE BLOOD COUNT 11.9 K/mm3 (4.0-10.0)
[2017-01-19 07:53] LABS: CALCIUM 8.5 mg/dL (8.5-10.1); COCKROFT - GAULT 104.55; CREATININE 0.5 mg/dL (0.55-1.02); PHOSPHOROUS 2.5 mg/dL (2.5-4.9)
[2017-01-19] MEDS: SODIUM CHLORIDE 1,000 ML IV SCH ×2 (09:02→22:21)
--- NOTE | 2017-01-19 09:26 | OP ---
DATE OF OPERATION: 01/17/2017 PREOPERATIVE DIAGNOSIS: Acute on chronic sigmoid diverticulitis with colocutaneous fistulae and possible colovaginal fistula. PROCEDURE: Sigmoid colectomy, end colostomy, and debridement and excision of colocutaneous fistulae. SURGEON: Best Hernández MD INTERNAL AFFAIRS INVESTIGATOR: Saud Brownlee PA-C ANESTHESIA: General. OPERATIVE FINDINGS: There was acute on chronic sigmoid diverticulitis with colocutaneous fistulae and colovaginal fistula. There was no gross evidence of abscess. There was loculated peritoneal fluid in the pelvis. There was marked distortion of the lower abdominal wall from the colocutaneous fistula. The rest of the findings were unremarkable. DESCRIPTION OF PROCEDURE: The patients abdomen was prepped with ChloraPrep and draped in sterile fashion after the induction of general anesthesia and the performance of cystoscopy and placement of a left ureteral stent by Dr. Garry Ortega, who will dictate that portion of the procedure. A time-out was taken, and the peritoneal cavity was entered through a midline incision. The previously noted findings were observed. The sigmoid colon was from the abdominal wall using blunt dissection and from the uterine wall using blunt dissection. The sigmoid colon was mobilized laterally along the white line of Toldt until a normal area of sigmoid was identified without evidence of diverticula. The colon was divided here using a MARION stapling device. Next, the mesentery of the sigmoid colon was sequentially divided using the LigaSure and/or a combination of Kenisha clamps and 2-0 Vicryl sutures. Dissection was continued in the sacral hollow starting at the level of the sacral promontory, and then using a combination of blunt and sharp dissection, the sigmoid was able to be mobilized and freed from any attachments. At this point, the sigmoid was divided using a TA stapling device distally and Rashaad clamps proximally. The excised specimen was passed off the operative field and sent fresh for pathological examination. Hemostasis was checked for and noted to be good, and then copious irrigation was carried out in the pelvis. Prior to this, the loculated fluid in the cul-de-sac was sent for culture and sensitivity. The ends of the rectal stump were tagged with 2-0 Prolene sutures. Next, attention was turned to the abdominal wall, where the openings of the colocutaneous fistulae were sharply excised using a scalpel, and this tissue was sent for pathological examination. The tract was curetted down through the abdominal wall. The right ovary and tube were visualized. However, the left ovary and tube were not visualized due to previous gynecological surgery. The ureteral stent and ureter on the left were visualized and palpated throughout the dissection. Next, an opening was made in the abdominal wall midway between the anterior superior iliac spine and the umbilicus on the left to bring the colostomy through. The colon was brought up through the abdominal wall, and then, the peritoneal cavity was copiously irrigated with sterile saline. Hemostasis was verified, and two 10-mm Pastor-Muller drains were placed through separate stab wounds in the right abdominal wall. The drains were connected to the skin with 2-0 silk suture. Next, closure of the abdominal wall was carried out using No. 1 looped cutaneous Prolene. The wound was irrigated, and the area around the umbilicus was loosely approximated with tien, and the wound was packed with Iodoform gauze as were the fistula tracts. Dry sterile dressings were placed. The drains were connected to bulb self-suction, and then, the suture line of the colon was excised, and the colostomy matured to the skin using 3-0 Vicryl suture. An appliance was placed for the colostomy as well as a colostomy bag, and the patient was aroused from general anesthesia and transferred to the post-anesthesia care unit in stable condition, awake and alert. ESTIMATED BLOOD LOSS: 200 mL. REPLACEMENTS: Crystalloid. DRAINS: Two 10-mm Pastor-Muller. SPECIMENS: Sigmoid colon, fistula tract, preperitoneal fluid for culture and sensitivity. At the conclusion of the case, needle, instrument, and sponge counts were verified as correct. I, Best Hernández, was physically present in the operating room from the time the patient was placed on the operating table until she was transferred to the post-anesthesia care unit in my accompaniment. MD CANDACE Wyatt/[id number]
--- NOTE | 2017-01-19 09:30 | PN ---
Progress Note (short form) - Note Progress Note: Attending Surgeon POD #2 c/o pain; using DIGITAL STRATEGIST SENIOR MANAGER; voiding w/o difficulty; no air passed per vagina or urethra ; has been OOB to chair VSS AF abdomen-soft;incision open;c/d/i; ostomy viable; minimal gas in bag; drains serosangunous labs noted; C and S peritoneal fluid; no growth to date IMP: improving PLAN: OOB/clear liquids/wound care; continue present tx. Best Hernández MD FACS
--- NOTE | 2017-01-19 11:38 | PN ---
Progress Note, Physician Chief Complaint: Pt. pain is better controlled after adjustments in CLOTHING BUSHELER dose and addition of Ofirmev yesterday. - Current Medication List Current Medications: Active Medications Acetaminophen (Tylenol -) 650 mg PO Q4H PRN PRN Reason: FEVER OR PAIN Acetaminophen (Ofirmev Injection -) 750 mg IVPB Q6H PRN Docusate Sodium (Colace -) 100 mg PO TID [facility] Last Admin: 01/19/17 06:26 Dose: Not Given Heparin Sodium (Porcine) (Heparin -) 5,000 unit SQ TID [facility] Last Admin: 01/19/17 06:26 Dose: Not Given Hydromorphone HCl (Dilaudid Hot Dipper -) 10 mg CLOTHING BUSHELER CLOTHING BUSHELER ERIK PRN Reason: Protocol Stop: 01/24/17 18:04 Last Admin: 01/19/17 01:53 Dose: 10 mg Metronidazole (Flagyl 500mg Premixed Ivpb -) 100 mls @ 100 mls/hr IVPB Q8H-IV [facility] Last Admin: 01/19/17 09:02 Dose: 100 mls/hr Levofloxacin (Levaquin 500 Mg Premixed Ivpb -) 100 mls @ 100 mls/hr IVPB HS [facility] Last Admin: 01/18/17 21:58 Dose: 100 mls/hr Sodium Chloride (Normal Saline -) 1,000 mls @ 100 mls/hr IV ASDIR [facility] Last Admin: 01/19/17 09:02 Dose: 100 mls/hr Nystatin (Nystatin Oral Suspension -) 500,000 units PO Q6HPO [facility] Last Admin: 01/19/17 11:28 Dose: 500,000 units Ondansetron HCl (Zofran Injection) 4 mg IVPB Q6H PRN PRN Reason: NAUSEA - Objective Vital Signs: Vital Signs Temperature 98.4 F 01/19/17 09:00 Pulse Rate 107 H 01/19/17 09:00 Respiratory Rate 18 01/19/17 09:00 Blood Pressure 130/90 01/19/17 09:00 O2 Sat by Pulse Oximetry (%) 97 01/19/17 09:00 Constitutional: Yes: Well Nourished, No Distress, Calm Musculoskeletal: Yes: WNL Neurological: Yes: WNL, Alert, Oriented ...Motor Strength: WNL Labs: CBC, BMP 01/19/17 06:20 01/19/17 06:20 INR, PTT INR 1.09 (0.82-1.09) 01/11/17 19:41 Assessment/Plan POD#2 s/p cystoscopy with stent, sigmoid resection with colostomy creation under GA. Pain control better. Continue CLOTHING BUSHELER.
--- NOTE | 2017-01-19 12:42 | PN ---
Progress Note, Physician History of Present Illness: Still with a lot of pain (mainly in central abdomen) when moving. Otherwise, feeling hungry, wants to eat (to start on clears today). - Current Medication List Current Medications: Active Medications Acetaminophen (Tylenol -) 650 mg PO Q4H PRN PRN Reason: FEVER OR PAIN Acetaminophen (Ofirmev Injection -) 750 mg IVPB Q6H PRN Docusate Sodium (Colace -) 100 mg PO TID [facility] Last Admin: 01/19/17 06:26 Dose: Not Given Heparin Sodium (Porcine) (Heparin -) 5,000 unit SQ TID [facility] Last Admin: 01/19/17 06:26 Dose: Not Given Hydromorphone HCl (Dilaudid Entry Level Project Coordinator -) 10 mg GRAIN OPERATIONS MANAGER GRAIN OPERATIONS MANAGER ERIK PRN Reason: Protocol Stop: 01/24/17 18:04 Last Admin: 01/19/17 01:53 Dose: 10 mg Metronidazole (Flagyl 500mg Premixed Ivpb -) 100 mls @ 100 mls/hr IVPB Q8H-IV [facility] Last Admin: 01/19/17 09:02 Dose: 100 mls/hr Levofloxacin (Levaquin 500 Mg Premixed Ivpb -) 100 mls @ 100 mls/hr IVPB HS [facility] Last Admin: 01/18/17 21:58 Dose: 100 mls/hr Sodium Chloride (Normal Saline -) 1,000 mls @ 100 mls/hr IV ASDIR [facility] Last Admin: 01/19/17 09:02 Dose: 100 mls/hr Nystatin (Nystatin Oral Suspension -) 500,000 units PO Q6HPO [facility] Last Admin: 01/19/17 11:28 Dose: 500,000 units Ondansetron HCl (Zofran Injection) 4 mg IVPB Q6H PRN PRN Reason: NAUSEA - Objective Vital Signs: Vital Signs Temperature 98.4 F 01/19/17 09:00 Pulse Rate 107 H 01/19/17 09:00 Respiratory Rate 18 01/19/17 09:00 Blood Pressure 130/90 01/19/17 09:00 O2 Sat by Pulse Oximetry (%) 97 01/19/17 09:00 Constitutional: Yes: No Distress, Calm Eyes: Yes: Conjunctiva Clear, EOM Intact HENT: Yes: Atraumatic, Normocephalic Neck: Yes: Supple, Trachea Midline Cardiovascular: Yes: Regular Rate and Rhythm, S1, S2. No: Murmur Respiratory: Yes: Regular, CTA Bilaterally Gastrointestinal: Yes: Other (dressign on abdomen, colostomy with small bloody drainage, abd SEGUNDO drains with bloody fluid) Neurological: Yes: Alert, Oriented Labs: CBC, BMP 01/19/17 06:20 01/19/17 06:20 INR, PTT INR 1.09 (0.82-1.09) 01/11/17 19:41 Assessment/Plan All Active Problems s/p partial colectomy, end colostomy/ debridement of abd abscess and fistulae Abdominal pain (Acute) [place]-vaginal fistula (Acute) Colocutaneous fistula (Acute) Diverticulitis of intestine with perforation and abscess (Acute) Weight loss (Acute) Sepsis (Acute) UTI -cont abx, post surgical care/ pain control -to begin clear fluids today
[2017-01-19] MEDS: ONDANSETRON 4 MG/2 ML VIAL IVPB PRN (15:35)
[2017-01-19] MEDS: LEVOFLOXACIN 500 MG IVPB 100 ML IVPB SCH (22:22)
[2017-01-20] MEDS: HYDROmorphone *PCA* 10MG/50ML DISP.SYRIN PCA SCH ×2 (01:20→12:29)
[2017-01-20] MEDS: NYSTATIN 500,000 UNITS/5 ML SUSPENSION PO SCH ×5 (01:21→17:16)
[2017-01-20] MEDS: METRONIDAZOLE 500 MG PREMIXED 100 ML IVPB SCH ×2 (01:22→10:10)
[2017-01-20] MEDS: MAG HYDROX/AL HYDROX/SIMETH 30 ML UNIT-DOSE CUP PO PRN (03:49)
[2017-01-20] MEDS: HEPARIN NA (PORCINE) 5,000 UNITS/ML 1ML VIAL SQ SCH ×3 (06:30→21:20)
[2017-01-20] MEDS: DOCUSATE SODIUM 100 MG CAPSULE (FP) PO SCH ×3 (06:30→21:13)
[2017-01-20 07:20] LABS: BASOPHIL 0.2 % (0-2.0); EOSINOPHIL 0.4 % (0-4.5); MCH 28.7 pg (25.7-33.7); MEAN CELL VOLUME 86.9 fl (80-96); MEAN PLT VOLUME 7.5 fl (7.5-11.1); NEUTROPHILS 79.3 % (42.8-82.8); PLATELET COUNT 324 K/MM3 (134-434); RDW 14.1 % (11.6-15.6); WHITE BLOOD COUNT 12.3 K/mm3 (4.0-10.0)
[2017-01-20 07:34] LABS: CALCIUM 8.7 mg/dL (8.5-10.1); COCKROFT - GAULT 104.55; CREATININE 0.5 mg/dL (0.55-1.02); MAGNESIUM 2.1 mg/dL (1.8-2.4)
[2017-01-20] MEDS ORDERED: HYDROmorphone *PCA* 10MG/50ML DISP.SYRIN PCA SCH (10:00)
--- NOTE | 2017-01-20 10:01 | PN ---
Progress Note, Physician History of Present Illness: Less abd pain, but notes a lot of "gas" in stomach with the clear diet she was started on. Notes a lot of heart-burn, but no vomiting. - Current Medication List Current Medications: Active Medications Acetaminophen (Tylenol -) 650 mg PO Q4H PRN PRN Reason: FEVER OR PAIN Acetaminophen (Ofirmev Injection -) 750 mg IVPB Q6H PRN Al Hydroxide/Mg Hydroxide (Mylanta Oral Suspension -) 30 ml PO Q6H PRN PRN Reason: INDIGESTION Last Admin: 01/20/17 03:49 Dose: 30 ml Docusate Sodium (Colace -) 100 mg PO TID [facility] Last Admin: 01/20/17 06:30 Dose: Not Given Heparin Sodium (Porcine) (Heparin -) 5,000 unit SQ TID [facility] Last Admin: 01/20/17 06:30 Dose: Not Given Hydromorphone HCl (Dilaudid Master Technician -) 10 mg BILLBOARD ERECTOR HELPER BILLBOARD ERECTOR HELPER ERIK PRN Reason: Protocol Stop: 01/24/17 18:04 Last Admin: 01/20/17 01:20 Dose: 10 mg Metronidazole (Flagyl 500mg Premixed Ivpb -) 100 mls @ 100 mls/hr IVPB Q8H-IV [facility] Last Admin: 01/20/17 01:22 Dose: 100 mls/hr Levofloxacin (Levaquin 500 Mg Premixed Ivpb -) 100 mls @ 100 mls/hr IVPB HS [facility] Last Admin: 01/19/17 22:22 Dose: 100 mls/hr Sodium Chloride (Normal Saline -) 1,000 mls @ 75 mls/hr IV ASDIR [facility] Nystatin (Nystatin Oral Suspension -) 500,000 units PO Q6HPO [facility] Last Admin: 01/20/17 07:19 Dose: Not Given Ondansetron HCl (Zofran Injection) 4 mg IVPB Q6H PRN PRN Reason: NAUSEA Last Admin: 01/19/17 15:35 Dose: 4 mg - Objective Vital Signs: Vital Signs Temperature 98.8 F 01/20/17 06:00 Pulse Rate 111 H 01/20/17 06:00 Respiratory Rate 18 01/20/17 06:00 Blood Pressure 141/95 01/20/17 06:00 O2 Sat by Pulse Oximetry (%) 96 01/19/17 21:00 Constitutional: Yes: No Distress, Calm Neck: Yes: Supple, Trachea Midline Cardiovascular: Yes: Regular Rate and Rhythm, S1, S2. No: Murmur Respiratory: Yes: Regular, CTA Bilaterally. No: Rales, Rhonchi, Wheezes Gastrointestinal: Yes: Other (central dressing, drains with blood tinged serosanguinous fluid, colostomy with blood tinged small amount liquid) Edema: No Labs: CBC, BMP 01/20/17 06:15 01/20/17 06:15 INR, PTT INR 1.09 (0.82-1.09) 01/11/17 19:41 Assessment/Plan All Active Problems s/p partial colectomy, end colostomy/ debridement of abd abscess and fistulae Abdominal pain (Acute) [place]-vaginal fistula (Acute) Colocutaneous fistula (Acute) Diverticulitis of intestine with perforation and abscess (Acute) Weight loss (Acute) Sepsis (Acute) UTI -cont abx -OOB
[2017-01-20] MEDS: SODIUM CHLORIDE 1,000 ML IV SCH ×2 (10:09→21:19)
--- NOTE | 2017-01-20 10:22 | PN ---
Progress Note (short form) - Note Progress Note: Anesthesiologist attending note. ADVENTURE CHALLENGE INSTRUCTOR orders, pain control. Patient seen and examined. Chart and orders reviewed. The ADVENTURE CHALLENGE INSTRUCTOR pump has been mistakenly programmed on Continues dose, Dilaudid,0.2 mg /hr and on demand 0.4 mg Q 6 min. However patient has not received more than 0.4 mg on demand during the past 24 hrs. Patients reports currently pain score 3/10. But increased pain when going to the bathroom. She is AAOX3, sitting in the bed. Started on liquid diet.VSS. Changes the ADVENTURE CHALLENGE INSTRUCTOR order to only on demand Dilaudid, 0.2 mg , lock out 6 minutes, 8 mg in 4 hours. Breakthrough pain 1 mg, Q 15 min max X3. As the patient tolerating more PO, will convert to PO meds. Will follow up tomorrow, 01/21.
--- NOTE | 2017-01-20 16:49 | PN ---
Progress Note (short form) - Note Progress Note: Attending Surgeon POD #3 Some nausea w/ clear liquids; less pain OOB to chair and ambulating the bathroom; voiding w/o difficulty VSS AF abdomen-soft/flat/wound care in progress; ostomy viablwe; minimal gas in ostomy bag WBC12.3 Cultures all negative Drain output noted. IMP:improving PLAN Continue present tx; d/c antibiotics; Ooob; hold diet at sips of clears for now; continue wound care and drains. Best Hernández MD FACS
[2017-01-20] MEDS ORDERED: PT OWN MED DRAWER 7, Y5N ONE (21:31)
[2017-01-21] MEDS: NYSTATIN 500,000 UNITS/5 ML SUSPENSION PO SCH ×4 (01:45→18:59)
[2017-01-21] MEDS: ONDANSETRON 4 MG/2 ML VIAL IVPB PRN ×2 (03:50→15:16)
[2017-01-21] MEDS: DOCUSATE SODIUM 100 MG CAPSULE (FP) PO SCH ×3 (05:11→21:13)
[2017-01-21] MEDS: MAG HYDROX/AL HYDROX/SIMETH 30 ML UNIT-DOSE CUP PO PRN ×2 (06:32→18:59)
[2017-01-21] MEDS: HEPARIN NA (PORCINE) 5,000 UNITS/ML 1ML VIAL SQ SCH ×3 (06:38→21:13)
[2017-01-21] MEDS ORDERED: PT OWN MED DRAWER 7, Y5N ONE (06:40)
[2017-01-21 08:03] LABS: BASOPHIL 0.2 % (0-2.0); EOSINOPHIL 0.1 % (0-4.5); MCH 28.8 pg (25.7-33.7); MCHC 33.2 g/dl (32.0-36.0); MEAN CELL VOLUME 86.9 fl (80-96); MEAN PLT VOLUME 7.6 fl (7.5-11.1); NEUTROPHILS 84.7 % (42.8-82.8); PLATELET COUNT 373 K/MM3 (134-434)
--- NOTE | 2017-01-21 08:22 | PN ---
Progress Note (short form) - Note Progress Note: POD #4 Remains on contact isolation. Alert. Doing well. States she continues to have intermittent nausea. Getting Zofran. Remains on sips. She gets out of bed to chair and ambulates to bathroom with assistance. Feeling depressed about current situation and having to deal with colostomy. Denies CP or SOB. Last Vital Signs Temp Pulse Resp BP Pulse Ox 99.3 F 106 H 20 148/87 96 04// 06:00 01/21/17 06:00 01/21/17 06:00 01/21/17 06:00 / 21:00 Gen: nad. Abd: midline incision open with intermittent tien. deep fascia intact. clean. LLQ eliptical wounds (enterocutaneous fistula) are cleaning. Ostomy viable (pink, protruding, air in bag) LE: soft, nt b/l Problem List - Problems (1) Diverticulitis of intestine with perforation and abscess Assessment/Plan: POD #4 s/p end colosotmy for acute diverticulitis with enterocutaneous fistula and abscess formation. Out of bed and ambulate hallways today SEGUNDO x2 removed intact on rounds FULL liquid diet Psych Consult - Alfredo Carroll NP Code(s): K57.80 - DVTRCLI OF INTEST, PART UNSP, W PERF AND ABSCESS W/O BLEED (2) Colocutaneous fistula Code(s): K63.2 - FISTULA OF INTESTINE
[2017-01-21 08:34] LABS: ALBUMIN 2.4 g/dl (3.4-5.0); ANION GAP 12 (8-16); BILIRUBIN,TOTAL 0.6 mg/dL (0.2-1.0); CALCIUM 8.5 mg/dL (8.5-10.1); CO2 28 mmol/L (21-32); COCKROFT - GAULT 130.645; CREATININE 0.4 mg/dL (0.55-1.02); GLUCOSE,RANDOM 121 mg/dL (74-106); SGOT/AST 12 U/L (15-37); SGPT/ALT 12 U/L (12-78); TOT PROT 5.5 g/dl (6.4-8.2)
[2017-01-21 08:35] LABS: ALK PHOS 43 U/L (45-117)
[2017-01-21] MEDS: HYDROmorphone *PCA* 10MG/50ML DISP.SYRIN PCA SCH (10:00)
[2017-01-21] MEDS: SODIUM CHLORIDE 1,000 ML IV SCH ×2 (12:25→12:29)
--- NOTE | 2017-01-21 12:46 | PN ---
Progress Note (short form) - Note Progress Note: Anesthesia/pain Pt seen and examined S;Alert and awake O: Vital Signs Temperature 99.3 F 01/21/17 06:00 Pulse Rate 106 H 01/21/17 06:00 Respiratory Rate 20 01/21/17 09:00 Blood Pressure 148/87 01/21/17 06:00 O2 Sat by Pulse Oximetry (%) 97 01/21/17 09:00 CBC, BMP 01/21/17 06:28 01/21/17 06:28 A/P:Current Active Problems Abdominal pain (Acute) [place]-vesical fistula (Acute) Colocutaneous fistula (Acute) Diverticulitis of intestine with perforation and abscess (Acute) Weight loss (Acute) Pt on FOOD QUALITY TESTER pump on demand dose. Sates she wants to keep FOOD QUALITY TESTER for now bc it takes time to receive medications from the nurse. Will continue FOOD QUALITY TESTER for now while she is still receiving IV fluids. Thiago Monahan MD
--- NOTE | 2017-01-21 13:29 | PATH ---
Surgical Pathology Report Patient Name: JOELLEN ROSAS [facility]. Rec. #: [id number] /Age/Gender: 1960 (Age: 56) / F Account: [id number] Location: 4 SO PEDS/ADOL Taken: 01/17/2017 Received: 01/18/2017 Reported: 01/21/2017 Physicians: Best Hernández MD Specimen(s) Received A: SIGMOID COLON RESECTION, COLOSTOMY B: BLADDER LESION C: COLOCUTANEOUS FISTULA Clinical History Diverticulitis of intestine with perforation Final Diagnosis A. PORTION OF SIGMOID COLON, RESECTION: SEGMENT OF COLON WITH DIVERTICULOSIS AND DIVERTICULITIS WITH EVIDENCE OF FOCAL PERFORATION, ASSOCIATED MARKED ACUTE AND CHRONIC INFLAMMATION WITH FOCAL MURAL ABSCESS FORMATION AND EXTENSIVE ACUTE AND CHRONIC SEROSITIS. NO MALIGNANCY IDENTIFIED. SURGICAL RESECTION MARGINS APPEAR VIABLE. B. BLADDER LESION, BIOPSY: PURULENT EXUDATE AND PROTEINCEOUS MUCOID MATERIAL. C. COLOCUTANEOUS FISTULA, EXCISION: FRAGMENTS OF ULCERATED SKIN AND GRANULATION TISSUE WITH ACUTE AND CHRONIC INFLAMMATION AND FOCI OF HEMORRHAGE. NO MALIGNANCY IDENTIFIED IN THE EXAMINED MATERIAL. Electronically Signed Tello Spring M.D. Gross Description A. Received in formalin labeled "sigmoid colon portion" is a 12.5 cm in length opened portion of bowel. The serosa is sams-bartholomew with diffuse inflammation and moderate attached pericolonic adipose tissue. The mucosa is sams with normal folds. Sectioning reveals a thickened bowel wall with multiple diverticula with surrounding inflammation. No definite perforation site is identified. Site Manager sections are submitted in 9 cassettes as follows: 3-0-enlqdjjtrkty margins; 4-5-rkmerwbqstuyhu diverticula. B. Received in formalin labeled "bladder lesion" is a 0.2 x 0.1 x 0.1 cm aggregate of sams soft tissue fragments. The formalin is filtered and the specimen is entirely submitted in one cassette. C. Received in formalin labeled "colocutaneous fistula" is a 1.9 x 1.4 x 0.3 cm aggregate of sams brown soft tissue fragments. The specimen is entirely submitted in one cassette. /01/18/201701/18/2017
--- NOTE | 2017-01-21 15:16 | PN ---
Progress Note, Physician Chief Complaint: Ms Loyd says she is feeling better, the pain is improving but she still requires the AUTOMATION CONTROLS EXPERT currently. Is tolerating a diet. +flatus and stool in colostomy bag. No cp or sob. - Current Medication List Current Medications: Active Medications Acetaminophen (Tylenol -) 650 mg PO Q4H PRN PRN Reason: FEVER OR PAIN Acetaminophen (Ofirmev Injection -) 750 mg IVPB Q6H PRN Al Hydroxide/Mg Hydroxide (Mylanta Oral Suspension -) 30 ml PO Q6H PRN PRN Reason: INDIGESTION Last Admin: 01/21/17 06:32 Dose: 30 ml Docusate Sodium (Colace -) 100 mg PO TID [facility] Last Admin: 01/21/17 05:11 Dose: 100 mg Heparin Sodium (Porcine) (Heparin -) 5,000 unit SQ TID [facility] Last Admin: 01/21/17 06:38 Dose: Not Given Hydromorphone HCl (Dilaudid Direct Response Consultant -) 10 mg AUTOMATION CONTROLS EXPERT AUTOMATION CONTROLS EXPERT [facility] PRN Reason: Protocol Stop: 01/24/17 18:04 Last Admin: 01/21/17 10:00 Dose: 10 mg Sodium Chloride (Normal Saline -) 1,000 mls @ 50 mls/hr IV ASDIR [facility] Last Admin: 01/21/17 12:25 Dose: 50 mls/hr Nystatin (Nystatin Oral Suspension -) 500,000 units PO Q6HPO [facility] Last Admin: 01/21/17 12:25 Dose: 500,000 units Ondansetron HCl (Zofran Injection) 4 mg IVPB Q6H PRN PRN Reason: NAUSEA Last Admin: 01/21/17 03:50 Dose: 4 mg - Objective Vital Signs: Vital Signs Temperature 99.6 F 01/21/17 14:49 Pulse Rate 104 H 01/21/17 14:49 Respiratory Rate 20 01/21/17 14:49 Blood Pressure 154/90 01/21/17 14:49 O2 Sat by Pulse Oximetry (%) 97 01/21/17 09:00 Constitutional: Yes: Well Nourished, No Distress, Calm Cardiovascular: Yes: Regular Rate and Rhythm. No: Gallop, Murmur, Rub Respiratory: Yes: Regular, CTA Bilaterally. No: Rales, Rhonchi, Wheezes Gastrointestinal: Yes: Normal Bowel Sounds, Soft, Distention (minimal), Tenderness (some) Extremities: Yes: WNL Edema: No Labs: CBC, BMP 01/21/17 06:28 01/21/17 06:28 INR, PTT INR 1.09 (0.82-1.09) 01/11/17 19:41 Problem List - Problems (1) [place]-vesical fistula Code(s): N32.1 - VESICOINTESTINAL FISTULA (2) Sepsis Code(s): A41.9 - SEPSIS, UNSPECIFIED ORGANISM (3) Abdominal pain Code(s): R10.9 - UNSPECIFIED ABDOMINAL PAIN Assessment/Plan (1) [place]-vesical fistula Assessment/Plan: -case d/w surgery -drains removed -tolerating soft diet -improving Code(s): N32.1 - VESICOINTESTINAL FISTULA (2) Sepsis Assessment/Plan: -resolved -doing well off antibiotics Code(s): A41.9 - SEPSIS, UNSPECIFIED ORGANISM (3) Abdominal pain Assessment/Plan: -secondary to surgery -on care giver -improving Code(s): R10.9 - UNSPECIFIED ABDOMINAL PAIN (4) Hypomagnesemia -replaced
--- NOTE | 2017-01-21 19:06 | CON.PSY ---
Psychiatry Consult Chief Complaint: I dont need to see you, I was having few difficult days from pain. I am ok now. - Previous Psychiatric Treatment Outpatient: None Inpatient: None - Previous Substance Abuse Treatment Outpatient: None Inpatient: None - Family History Family History: Unremarkable - Current Medications Current Medications: Active Medications Acetaminophen (Tylenol -) 650 mg PO Q4H PRN PRN Reason: FEVER OR PAIN Acetaminophen (Ofirmev Injection -) 750 mg IVPB Q6H PRN Al Hydroxide/Mg Hydroxide (Mylanta Oral Suspension -) 30 ml PO Q6H PRN PRN Reason: INDIGESTION Last Admin: 01/21/17 18:59 Dose: 30 ml Docusate Sodium (Colace -) 100 mg PO TID [facility] Last Admin: 01/21/17 15:15 Dose: 100 mg Heparin Sodium (Porcine) (Heparin -) 5,000 unit SQ TID [facility] Last Admin: 01/21/17 15:34 Dose: Not Given Hydromorphone HCl (Dilaudid Electrical Maintenance Man -) 10 mg MAGNAFLUX OPERATOR MAGNAFLUX OPERATOR ERIK PRN Reason: Protocol Stop: 01/24/17 18:04 Last Admin: 01/21/17 10:00 Dose: 10 mg Sodium Chloride (Normal Saline -) 1,000 mls @ 50 mls/hr IV ASDIR [facility] Last Admin: 01/21/17 12:25 Dose: 50 mls/hr Nystatin (Nystatin Oral Suspension -) 500,000 units PO Q6HPO [facility] Last Admin: 01/21/17 18:59 Dose: 500,000 units Ondansetron HCl (Zofran Injection) 4 mg IVPB Q6H PRN PRN Reason: NAUSEA Last Admin: 01/21/17 15:16 Dose: 4 mg - Allergies Allergies: Allergies Allergy/AdvReac Type Severity Reaction Status Date / Time pantoprazole sodium Allergy Verified 01/11/17 17:30 [From Protonix] - Current Living Status Usual Living Arrangement: With Spouse - Current Mental Status Evaluation Appearance: Well Groomed Attitude: Cooperative - Affect Affect: Full Range Appropriateness: Appropriate to Content - Mood Mood: Euthymic - Speech/Language Expressive: Coherent - Psychomotor Activity Psychomotor Activity: Normal - Thought Process Thought Process: Intact - Thought Content Hallucinations: Absent Delusions: Absent - Self Perception Self Perception: No Impairment - Cognition Attention: Alert Orientation: Time Memory, Immediate Recall: Intact Memory, Remote: Intact - Concentration Serial Sevens Intact: Yes Simple Calculations Intact: Yes - Abstraction Proverb Interpretation: Intact Judgement: Intact - Insight Insight: Intact - Impulse Control Impulse Control: Good Control - Suicidal Ideation Suicidal Ideation: No - Homicidal Ideation Homicidal Ideation: No Assessment/Plan 1) No need for any psych meds at this time.
[2017-01-21] MEDS ORDERED: ONDANSETRON 4 MG/2 ML VIAL IVPB ONE (23:30)
[2017-01-22] MEDS: NYSTATIN 500,000 UNITS/5 ML SUSPENSION PO SCH ×4 (01:06→17:21)
[2017-01-22] MEDS: DOCUSATE SODIUM 100 MG CAPSULE (FP) PO SCH ×3 (05:31→21:00)
[2017-01-22] MEDS: HEPARIN NA (PORCINE) 5,000 UNITS/ML 1ML VIAL SQ SCH ×3 (05:32→21:00)
[2017-01-22 07:40] LABS: CALCIUM 8.5 mg/dL (8.5-10.1); COCKROFT - GAULT 130.645; CREATININE 0.4 mg/dL (0.55-1.02); MAGNESIUM 2.1 mg/dL (1.8-2.4); PHOSPHOROUS 2.8 mg/dL (2.5-4.9)
--- NOTE | 2017-01-22 07:55 | PATH ---
Cytology Non-Gynecological Report Patient Name: JOELLEN ROSAS [facility]. Rec. #: [id number] /Age/Gender: 1960 (Age: 56) / F Account: [id number] Location: [facility] PEDS/ADOL Taken: 01/17/2017 Received: 01/18/2017 Reported: 01/22/2017 Physicians: Kurtis Knight F.NChepe Specimen(s) Received URINE FOR CYTOLOGY FROM CYSTOSCOPE Clinical History Not given Final Diagnosis CYSTOSCOPY URINE FOR CYTOLOGY: SATISFACTORY FOR EVALUATION. NO MALIGNANT CELLS IDENTIFIED. SCATTERED REACTIVE UROTHELIAL CELLS. ABUNDANT ACUTE INFLAMMATION. NUMEROUS RED BLOOD CELLS. RARE CRYSTALS PRESENT. Comment: No fungal organisms identified with PAS stain. Refer to [id number] for the surgical pathology results. Electronically Signed Tello Spring M.D. Gross Description Received is 10cc of yellow fluid fresh. One cytofunnel slide and one cell block made.
--- NOTE | 2017-01-22 08:43 | PN ---
Progress Note (short form) - Note Progress Note: POD #5 Remains on contact isolation. Alert. Doing well. Nausea completely resolved. She was started on FULL LIQUID diet yesterday and tolerated well. She was out of bed an ambulated without assistance. A Psych consult was ordered yesterday but patient states she kicked the DrBar out of the room and never spoke with him. However, Psych cosult noted no medications needed. Patient is requesting a Psych Consult with a female practioner. Denies n/v/f/c, CP or SOB. Last Vital Signs Temp Pulse Resp BP Pulse Ox 99.6 F 89 20 134/85 96 / 06:00 01/22/17 06:00 01/22/17 06:00 01/22/17 06:00 01/21/17 21:00 CBC 01/22/17 06:00 PE General: alert. nad Abd: midline incision open with intermittent tien. deep fascia intact. clean. LLQ eliptical wounds (enterocutaneous fistula) are cleaning. Ostomy viable (pink, protruding, producing) LE: soft, nt b/l Problem List - Problems (1) Diverticulitis of intestine with perforation and abscess Assessment/Plan: POD #5 VNS for daily dressings Ostomy Care RN Hypokalemic - ordered 40mEq PO x1 Cont oob and ambulate Dressing changed on rounds Recommend new Psych Consult preferably with a female practioner as patient admits to depression No further surgical intervention On behalf of Dr. Hernández, thank you for the opportunity to participate in your patient's care Code(s): K57.80 - DVTRCLI OF INTEST, PART UNSP, W PERF AND ABSCESS W/O BLEED (2) Colocutaneous fistula Code(s): K63.2 - FISTULA OF INTESTINE
[2017-01-22] MEDS ORDERED: POTASSIUM CHLORIDE TABS 20 MEQ TABLET.ER (FP) PO ONE (08:50)
[2017-01-22] MEDS ORDERED: OXYCODONE/APAP 5/325MG COMBO TABLET PO PRN (08:58)
--- NOTE | 2017-01-22 09:05 | PN ---
Progress Note, Physician Chief Complaint: Pt pain better controlled, uses SET DESIGNER periodically, plan is for discharge tomorrow. - Current Medication List Current Medications: Active Medications Acetaminophen (Tylenol -) 650 mg PO Q4H PRN PRN Reason: FEVER OR PAIN Al Hydroxide/Mg Hydroxide (Mylanta Oral Suspension -) 30 ml PO Q6H PRN PRN Reason: INDIGESTION Last Admin: 01/21/17 18:59 Dose: 30 ml Docusate Sodium (Colace -) 100 mg PO TID [facility] Last Admin: 01/22/17 05:31 Dose: 100 mg Heparin Sodium (Porcine) (Heparin -) 5,000 unit SQ TID [facility] Last Admin: 01/22/17 05:32 Dose: Not Given Sodium Chloride (Normal Saline -) 1,000 mls @ 50 mls/hr IV ASDIR [facility] Last Admin: 01/21/17 12:25 Dose: 50 mls/hr Nystatin (Nystatin Oral Suspension -) 500,000 units PO Q6HPO [facility] Last Admin: 01/22/17 05:31 Dose: 500,000 units Ondansetron HCl (Zofran Injection) 4 mg IVPB Q6H PRN PRN Reason: NAUSEA Last Admin: 01/21/17 15:16 Dose: 4 mg Oxycodone/Acetaminophen (Percocet 5/325 -) 2 combo PO Q4H PRN PRN Reason: PAIN LEVEL 6-10 - Objective Vital Signs: Vital Signs Temperature 99.6 F 01/22/17 06:00 Pulse Rate 89 01/22/17 06:00 Respiratory Rate 20 01/22/17 06:00 Blood Pressure 134/85 01/22/17 06:00 O2 Sat by Pulse Oximetry (%) 96 01/21/17 21:00 Constitutional: Yes: Well Nourished, No Distress, Calm Musculoskeletal: Yes: WNL Neurological: Yes: WNL, Alert, Oriented ...Motor Strength: WNL Labs: CBC, BMP 01/22/17 06:00 INR, PTT INR 1.09 (0.82-1.09) 01/11/17 19:41 Assessment/Plan POD#5 s/p Cysto with stent, sigmoid resection with colostomy under GA with SET DESIGNER for pain control. Doing much better from pain standpoint. D/C SET DESIGNER. Start Oxycodone 5mg q3h prn. D/C from anesthesia care.
[2017-01-22] MEDS: SODIUM CHLORIDE 1,000 ML IV SCH ×2 (11:20→17:21)
[2017-01-22] MEDS: oxyCODONE HCL 5 MG TABLET PO PRN ×3 (12:09→20:40)
[2017-01-22] MEDS: ACETAMINOPHEN 500 MG TABLET (FP) PO PRN ×2 (12:16→20:50)
--- NOTE | 2017-01-22 12:20 | PN ---
Progress Note, Physician Chief Complaint: Ms Loyd continues to improve. Off of CERTIFIED NURSING ASSISTANT INSTRUCTOR, now on oxycodone. Ambulating in hallway without difficulty. Tolerating diet and able to advance. No cp or sob. - Current Medication List Current Medications: Active Medications Acetaminophen (Tylenol -) 650 mg PO Q4H PRN PRN Reason: FEVER OR PAIN Acetaminophen (Tylenol -) 500 mg PO Q4H PRN PRN Reason: FEVER OR PAIN Last Admin: 01/22/17 12:16 Dose: 500 mg Al Hydroxide/Mg Hydroxide (Mylanta Oral Suspension -) 30 ml PO Q6H PRN PRN Reason: INDIGESTION Last Admin: 01/21/17 18:59 Dose: 30 ml Docusate Sodium (Colace -) 100 mg PO TID [facility] Last Admin: 01/22/17 05:31 Dose: 100 mg Heparin Sodium (Porcine) (Heparin -) 5,000 unit SQ TID [facility] Last Admin: 01/22/17 05:32 Dose: Not Given Sodium Chloride (Normal Saline -) 1,000 mls @ 50 mls/hr IV ASDIR [facility] Last Admin: 01/22/17 11:20 Dose: 50 mls/hr Nystatin (Nystatin Oral Suspension -) 500,000 units PO Q6HPO [facility] Last Admin: 01/22/17 12:08 Dose: 500,000 units Ondansetron HCl (Zofran Injection) 4 mg IVPB Q6H PRN PRN Reason: NAUSEA Last Admin: 01/21/17 15:16 Dose: 4 mg Oxycodone HCl (Roxicodone -) 5 mg PO Q3H PRN PRN Reason: MODERATE PAIN Last Admin: 01/22/17 12:09 Dose: 5 mg - Objective Vital Signs: Vital Signs Temperature 98.6 F 01/22/17 10:00 Pulse Rate 93 H 01/22/17 10:00 Respiratory Rate 18 01/22/17 10:00 Blood Pressure 153/83 01/22/17 10:00 O2 Sat by Pulse Oximetry (%) 96 01/22/17 09:00 Constitutional: Yes: Well Nourished, No Distress, Calm Cardiovascular: Yes: Regular Rate and Rhythm. No: Gallop, Murmur, Rub Respiratory: Yes: Regular, CTA Bilaterally. No: Rales, Rhonchi, Wheezes Gastrointestinal: Yes: Normal Bowel Sounds, Soft, Tenderness. No: Distention Extremities: Yes: WNL Edema: No Labs: CBC, BMP 01/22/17 06:00 INR, PTT INR 1.09 (0.82-1.09) 01/11/17 19:41 Problem List - Problems (1) [place]-vesical fistula Code(s): N32.1 - VESICOINTESTINAL FISTULA (2) Sepsis Code(s): A41.9 - SEPSIS, UNSPECIFIED ORGANISM (3) Abdominal pain Code(s): R10.9 - UNSPECIFIED ABDOMINAL PAIN Assessment/Plan (1) [place]-vesical fistula Assessment/Plan: -continues to improve -diet advanced today -off of CERTIFIED NURSING ASSISTANT INSTRUCTOR -possible discharge tomorrow Code(s): N32.1 - VESICOINTESTINAL FISTULA (2) Sepsis Assessment/Plan: -resolved -doing well off antibiotics Code(s): A41.9 - SEPSIS, UNSPECIFIED ORGANISM (3) Abdominal pain Assessment/Plan: -improving Code(s): R10.9 - UNSPECIFIED ABDOMINAL PAIN (4) Hypomagnesemia -replaced
[2017-01-22 14:56] LABS: EOSINOPHIL 0.4 % (0-4.5); MCH 29.1 pg (25.7-33.7); MEAN PLT VOLUME 7.7 fl (7.5-11.1); NEUTROPHILS 74.6 % (42.8-82.8); PLATELET COUNT 360 K/MM3 (134-434); RDW 14.6 % (11.6-15.6); WHITE BLOOD COUNT 13.1 K/mm3 (4.0-10.0)
[2017-01-23] MEDS: oxyCODONE HCL 5 MG TABLET PO PRN ×4 (00:05→10:20)
[2017-01-23] MEDS: ACETAMINOPHEN 325 MG TABLET (FP) PO PRN ×3 (00:05→10:19)
[2017-01-23] MEDS: NYSTATIN 500,000 UNITS/5 ML SUSPENSION PO SCH ×2 (00:11→06:29)
[2017-01-23] MEDS: HEPARIN NA (PORCINE) 5,000 UNITS/ML 1ML VIAL SQ SCH (06:30)
[2017-01-23] MEDS: DOCUSATE SODIUM 100 MG CAPSULE (FP) PO SCH (06:30)
[2017-01-23 09:09] VITALS: BP 155/84; PULSE 92; TEMP 98.3
--- NOTE | 2017-01-23 11:46 | DS ---
Physical Examination Vital Signs: Vital Signs Temperature 98.3 F 01/23/17 09:08 Pulse Rate 92 H 01/23/17 09:08 Respiratory Rate 16 01/23/17 09:08 Blood Pressure 155/84 01/23/17 09:08 O2 Sat by Pulse Oximetry (%) 97 01/22/17 16:25 Constitutional: Yes: Well Nourished, No Distress, Calm Cardiovascular: Yes: Regular Rate and Rhythm. No: Gallop, Murmur, Rub Respiratory: Yes: Regular, CTA Bilaterally, Rhonchi. No: Rales, Wheezes Gastrointestinal: Yes: Normal Bowel Sounds, Soft, Tenderness Extremities: Yes: WNL Edema: No Labs: CBC, BMP 01/22/17 06:00 01/22/17 06:00 Discharge Summary Reason For Visit: DIVERTICULITIS OF INTESTINE WITH PERFORATION AND Current Active Problems Abdominal pain (Acute) [place]-vesical fistula (Acute) Colocutaneous fistula (Acute) Diverticulitis of intestine with perforation and abscess (Acute) Weight loss (Acute) Hospital Course: (1) [place]-vesical fistula Code(s): N32.1 - VESICOINTESTINAL FISTULA (2) Sepsis Code(s): A41.9 - SEPSIS, UNSPECIFIED ORGANISM (3) Abdominal pain Code(s): R10.9 - UNSPECIFIED ABDOMINAL PAIN (4) Hypomagnesemia Ms Loyd is a pleasant 56 year old female with history of diverticulitis who developed sepsis and colo-vesical fistula. She was admitted to the hospital and started on IV levaquin and flagyl. GI and general surgery saw her and when she was stable she underwent surgical intervention with colostomy placement. was also involved secondary to the fistula, this was corrected. Currently she is doing well. She is tolerating a diet and ambulating. She still has significant pain, will try oral morphine and outpatient follow up. 35 minutes spent in preparation for this discharge Condition: Good - Instructions Diet, Activity, Other Instructions: VNS ordered for midline incision open wound. Irrigate daily and pack open areas with moist gauze (saline). Cover with 4x4, abd, tape. Follow-up with Dr. Hernández 01/30 for staple removal in his office. Call to make an appointment Referrals: Best Hernández MD [Staff Physician] - Denzel Thurston MD [Primary Care Provider] - Disposition: VNS/HOME HEALTH CARE - Home Medications Comprehensive Discharge Medication List: Ambulatory Orders Morphine Sulfate 15 mg PO Q4H #30 tablet MDD 180mg 01/23/17
--- NOTE | 2017-01-23 11:52 | PN ---
GI Progress Note Subjective: GI NOte: Tolerating diet. Colostomy functional. Minimal pain. - Objective Vital Signs: Vital Signs Temperature 98.3 F 01/23/17 09:08 Pulse Rate 92 H 01/23/17 09:08 Respiratory Rate 16 01/23/17 09:08 Blood Pressure 155/84 01/23/17 09:08 O2 Sat by Pulse Oximetry (%) 97 01/22/17 16:25 CBC,CMP WBC 13.1 K/mm3 (4.0-10.0) H 01/22/17 06:00 RBC 3.79 M/mm3 (3.60-5.2) 01/22/17 06:00 Hgb 11.0 GM/dL (10.7-15.3) 01/22/17 06:00 Hct 33.4 % (32.4-45.2) 01/22/17 06:00 MCV 88.0 fl (80-96) 01/22/17 06:00 MCHC 33.0 g/dl (32.0-36.0) 01/22/17 06:00 RDW 14.6 % (11.6-15.6) 01/22/17 06:00 Plt Count 360 K/MM3 (134-434) 01/22/17 06:00 MPV 7.7 fl (7.5-11.1) 01/22/17 06:00 Neutrophils % 74.6 % (42.8-82.8) 01/22/17 06:00 Lymphocytes % 14.5 % (8-40) D 01/22/17 06:00 Monocytes % 8.5 % (3.8-10.2) 01/22/17 06:00 Eosinophils % 0.4 % (0-4.5) D 01/22/17 06:00 Basophils % 2.0 % (0-2.0) D 01/22/17 06:00 Sodium 143 mmol/L (136-145) 01/22/17 06:00 Potassium 3.1 mmol/L (3.5-5.1) L 01/22/17 06:00 Chloride 104 mmol/L (98-107) 01/22/17 06:00 Carbon Dioxide 32 mmol/L (21-32) 01/22/17 06:00 Anion Gap 7 (8-16) L 01/22/17 06:00 BUN 10 mg/dL (7-18) 01/22/17 06:00 Creatinine 0.4 mg/dL (0.55-1.02) L 01/22/17 06:00 Creat Clearance w eGFR > 60 (>60) 01/21/17 06:28 Random Glucose 112 mg/dL (74-106) H 01/22/17 06:00 Calcium 8.5 mg/dL (8.5-10.1) 01/22/17 06:00 Phosphorus 2.8 mg/dL (2.5-4.9) 01/22/17 06:00 Magnesium 2.1 mg/dL (1.8-2.4) 01/22/17 06:00 Total Bilirubin 0.6 mg/dL (0.2-1.0) 01/21/17 06:28 AST 12 U/L (15-37) L D 01/21/17 06:28 ALT 12 U/L (12-78) 01/21/17 06:28 Alkaline Phosphatase 43 U/L (45-117) L D 01/21/17 06:28 C-Reactive Protein 1.4 MG/DL (0.00-0.3) H D 01/13/17 06:15 Total Protein 5.5 g/dl (6.4-8.2) L 01/21/17 06:28 Albumin 2.4 g/dl (3.4-5.0) L 01/21/17 06:28 Total Amylase Cancelled 01/11/17 19:32 Lipase Cancelled 01/11/17 19:32 Constitutional: No Distress ...Auscultate: Yes: Normoactive Bowel Sounds ...Palpate: Yes: Soft, Other (healing open vertical midline incision bandaged, functional LLQ colostomy.) Labs: CBC, BMP 01/22/17 06:00 01/22/17 06:00 INR, PTT INR 1.09 (0.82-1.09) 01/11/17 19:41 Assessment/Plan s/p [place] procedure for diverticular abscesses and colovesical and colocutaneous fistulae. NO GI objections to discharge. I gave our business card to followup for colon cancer screening after reveal of the colostomy. Discussed with Dr Taveras. Problem List - Problems (1) [place]-vesical fistula Code(s): N32.1 - VESICOINTESTINAL FISTULA (2) Colocutaneous fistula Code(s): K63.2 - FISTULA OF INTESTINE (3) Weight loss Code(s): R63.4 - ABNORMAL WEIGHT LOSS
--- NOTE | 2017-01-23 15:34 | OP ---
DATE OF OPERATION: 01/16/2017 PREOPERATIVE DIAGNOSIS: Pelvic tumor, left hydronephrosis. OPERATIVE PROCEDURE: Cystourethroscopy, removal of stones from bladder, left retrograde pyelogram, and placement of a left JJ stent. ANESTHESIA: General. Under above-stated anesthesia, patient was prepped and draped in the usual sterile manner. She was placed in the dorsal lithotomy position. Cystoscopy performed under direct vision revealed a normal meatus. The bladder revealed multiple small stones. Using a biopsy forceps, the stones were removed from the bladder. The Flexi-Tip catheter was placed into the left ureteral orifice and 7 mL of contrast was injected. This revealed the entire left renal system. A Glidewire was passed up the left renal unit. A straight ureteral stent was placed into the left renal unit. Proximal end was in the renal pelvis, distal end was brought out the urethra. The bladder was emptied. Scope was removed. An 18-Urdu Snyder was inserted. Both ureteral stent and Snyder were sutured together with a 2-0 silk suture. Both were placed in drainage systems. The patient tolerated the procedure well. The general surgical procedure will follow. Kurtis [id number]
== END 2017-01-23 13:25 | disposition home health service (06) | DRG 221 ==
LOC: JER 17:15 → JERBED 21:28 → J4S 23:56 → J7W 01-22 15:39
PROVIDERS: ADMIT Specialist; ATTEND Internal Medicine
PROC: 0T778DZ Dilation of Left Ureter with Intraluminal Device, Via Natural or Artificial Opening Endoscopic (ICD-10-PCS; 2017-01-17)
PROC: BT1F1ZZ Fluoroscopy of Left Kidney, Ureter and Bladder using Low Osmolar Contrast (ICD-10-PCS; 2017-01-17)
PROC: 0TBB8ZX Excision of Bladder, Via Natural or Artificial Opening Endoscopic, Diagnostic (ICD-10-PCS; 2017-01-17)
PROC: 0TCB8ZZ Extirpation of Matter from Bladder, Via Natural or Artificial Opening Endoscopic (ICD-10-PCS; 2017-01-17)
PROC: 0DBN0ZZ Excision of Sigmoid Colon, Open Approach (ICD-10-PCS; principal; 2017-01-17 13:30)
PROC: 0D1N0Z4 Bypass Sigmoid Colon to Cutaneous, Open Approach (ICD-10-PCS; 2017-01-17 13:30)
DX: K57.32 Diverticulitis of large intestine without perforation or abscess without bleeding (principal); N32.1 Vesicointestinal fistula; K63.2 Fistula of intestine; B37.0 Candidal stomatitis; A41.9 Sepsis, unspecified organism; E83.42 Hypomagnesemia; N39.0 Urinary tract infection, site not specified; Z87.891 Personal history of nicotine dependence; R63.4 Abnormal weight loss; D41.4 Neoplasm of uncertain behavior of bladder; N21.0 Calculus in bladder
CPT/HCPCS: 36415; 71010-TC; 74177-TC; 76000-TC; 80048; 80053; 81003; 81015; 82150; 83690; 83735; 84100; 84703; 85025; 85610; 86140; 86850; 86900; 86901; 87040; 87070; 87075; 87086; 87205; 88108; 88304-TC; 88305-TC; 88307-TC; 93005; 93010; 94010; 94760; 99284-25; J1644

== ENCOUNTER 2017-05-31 06:45 | Inpatient (IN) | payer OTHER ==
[2017-05-28 15:35] VITALS: BMI 24.0
[2017-05-31] MEDS ORDERED: ALVIMOPAN 12 MG CAP PO ONE (09:36)
[2017-05-31] MEDS ORDERED: ERTAPENEM SODIUM 1 GM in SODIUM CHLORIDE 50 ML IVPB ONE (09:54)
--- NOTE | 2017-05-31 09:54 | HP ---
History & Physical Update - History History: No Change - Physical Physical: No Change - Assessment Assessment: No Change - Plan Plan: No Change
[2017-05-31] MEDS ORDERED: MIDAZOLAM HCL 2 MG/2 ML SINGLE DOSE VIAL ONE ×2 (10:02)
[2017-05-31] MEDS ORDERED: PROPOFOL 20 ML ONE (10:13)
[2017-05-31] MEDS ORDERED: ROCURONIUM BROMIDE 50 MG/5 ML VIAL ONE ×3 (10:13→13:57)
[2017-05-31] MEDS ORDERED: ERTAPENEM SODIUM 1 GM VIAL ONE (10:38)
[2017-05-31] MEDS ORDERED: ERTAPENEM SODIUM 1 GM VIAL IVPB ONE (10:40)
[2017-05-31] MEDS ORDERED: HYDROmorphone HCL/PF 1 MG/ML VIAL (FOR PYXIS CHARGING ONLY) ONE ×4 (10:55→13:58)
[2017-05-31] MEDS ORDERED: DEXAMETHASONE SOD PHOSPHATE 4 MG/1 ML VIAL ONE (11:52)
[2017-05-31] MEDS ORDERED: ACETAMINOPHEN INJECTION 100 ML IVPB ONE (14:04)
[2017-05-31] MEDS ORDERED: NEOSTIGMINE METHYLSULFATE 0.5 MG/ML - 10 ML MDV ONE (15:02)
[2017-05-31] MEDS ORDERED: GLYCOPYRROLATE 0.2 MG/1 ML VIAL ONE (15:02)
--- NOTE | 2017-05-31 15:27 | SURG ---
Surgery Hearing Care Practitioner Note Hearing Care Practitioner: Saud Brownlee PA-C Date of Service: 05/31/17 Diagnosis: Diverticulitis Procedure: [place]-colostomy, extensive lysis of adhesions I was present for the entirety of the operative procedure. For further detail, please refer to operative report. Visit type - Case Type Case Type: Scheduled Admission - New patient This patient is new to me today: Yes Date on this admission: 05/31/17
--- NOTE | 2017-05-31 15:27 | OP ---
Operative Note - Note: Operative Date: 05/31/17 Pre-Operative Diagnosis: Diverticulitis Operation: [place]-colostomy, extensive lysis of adhesions Post-Operative Diagnosis: Same as Pre-op Surgeon: Best Hernández Winchman/Crane Operator: Saud Brownlee Anesthesiologist/SENIOR MANAGER MERGERS [employer] ACQUISITIONS: Henrietta Corrales Anesthesia: General Specimens Removed: 1. Colostomy, 2. proximal and distal margins (donuts) from new anastamosis Estimated Blood Loss (mls): 150 Drains & Tubes with Location: SEGUNDO --> RLQ Drains, Volume Out (mls): 400 (clear) Fluid Volume Replaced (mls): 3,500 Operative Report Dictated: Yes
[2017-05-31] MEDS ORDERED: ACETAMINOPHEN 1000 MG/100 ML VIAL (NON FORMULARY) IVPB PRN (15:31)
[2017-05-31] MEDS ORDERED: ONDANSETRON 4 MG/2 ML VIAL IVPUSH PRN (15:34)
[2017-05-31] MEDS: HYDROmorphone HCL CARPU-JECT 1 MG/1 ML DISP.SYRIN IVPUSH PRN ×4 (15:40→15:55)
[2017-05-31] MEDS ORDERED: HYDROmorphone HCL CARPU-JECT 2 MG/1 ML DISP.SYRIN ONE (15:45)
[2017-05-31] MEDS: HYDROmorphone *PCA* 10MG/50ML DISP.SYRIN PCA SCH (16:00)
[2017-05-31] MEDS ORDERED: CEFAZOLIN (PRE-DOCKED) 1 GM in DEXTROSE 5%-WATER - 50 ML IVPB SCH (18:00)
[2017-05-31] MEDS ORDERED: CEFAZOLIN 1 GM in DEXTROSE 5%-WATER - 50 ML IVPB SCH (18:31)
[2017-05-31] MEDS ORDERED: ceFAZolin SODIUM 1 GM VIAL ONE (18:33)
[2017-05-31] MEDS ORDERED: DEXTROSE 5%-WATER - 50 ML IVPB ONE (18:33)
[2017-05-31] MEDS: LACTATED RINGERS SOLUTION 1,000 ML IV SCH (18:35)
[2017-05-31] MEDS: ALVIMOPAN 12 MG CAP PO SCH (18:40)
[2017-05-31] MEDS: CEFAZOLIN 1 GM in DEXTROSE 5%-WATER - 50 ML IVPB SCH (18:43)
[2017-05-31] MEDS: FAMOTIDINE 20 MG/50 ML IVPB 50 ML IVPB SCH (21:32)
[2017-06-01] MEDS ORDERED: ceFAZolin SODIUM 1 GM VIAL ONE (01:51)
[2017-06-01] MEDS ORDERED: DEXTROSE 5%-WATER - 50 ML IVPB ONE (01:52)
[2017-06-01] MEDS: CEFAZOLIN 1 GM in DEXTROSE 5%-WATER - 50 ML IVPB SCH (02:15)
[2017-06-01] MEDS: HYDROmorphone *PCA* 10MG/50ML DISP.SYRIN PCA SCH ×2 (07:44→13:37)
[2017-06-01 09:24] LABS: MCH 29.3 pg (25.7-33.7); MCHC 33.2 g/dl (32.0-36.0); MEAN CELL VOLUME 88.1 fl (80-96); MEAN PLT VOLUME 7.9 fl (7.5-11.1); PLATELET COUNT 223 K/MM3 (134-434); RDW 13.9 % (11.6-15.6); WHITE BLOOD COUNT 13.5 K/mm3 (4.0-10.0)
--- NOTE | 2017-06-01 09:34 | PN ---
Progress Note (short form) - Note Progress Note: Attending Surgeon POD #1 s/p colo-colostomy/reversal of Hartmans procedure. C/O incisional pain; relieved w/DIGITAL ADVERTISING ANALYST; sharma put; no nausea; no vomiting or flatus or BM VSS AF abdomen-slightly distended and tympanitic; dressings c/d/i; SEGUNDO bloody urine output good labs noted IMP: doing well POD #1 PLAN: OOB to chair; pulmonary toilet; awaite return of bowel function; NPO/IVF Best Hernández MD FACS
[2017-06-01 09:37] LABS: ANION GAP 6 (8-16); CALCIUM 8.4 mg/dL (8.5-10.1); CO2 29 mmol/L (21-32); CREATININE 0.5 mg/dL (0.55-1.02); GLUCOSE,RANDOM 114 mg/dL (74-106)
[2017-06-01] MEDS ORDERED: PT OWN MED DRAWER 7, Y5N ONE (10:32)
[2017-06-01] MEDS: ENOXAPARIN NA (PORCINE) 40 MG/0.4 ML DISP.SYRIN SQ SCH (10:41)
[2017-06-01] MEDS: FAMOTIDINE 20 MG/50 ML IVPB 50 ML IVPB SCH ×2 (10:41→21:27)
[2017-06-01] MEDS: ALVIMOPAN 12 MG CAP PO SCH ×2 (10:42→22:08)
--- NOTE | 2017-06-01 13:16 | PN ---
Progress Note (short form) - Note Progress Note: ANESTHESIOLOGY POST-OP CHECK 56F s/p reversal of [place] under general anesthesia, POD #1: C/o pain 4/10 at rest but 12/10 when OOB to chair. Denies N/V, NPO, sharma out. Vital Signs Temperature 98.7 F 06/01/17 11:32 Pulse Rate 90 06/01/17 11:32 Respiratory Rate 18 06/01/17 11:32 Blood Pressure 135/79 06/01/17 11:32 O2 Sat by Pulse Oximetry (%) 100 06/01/17 09:00 Active Medications Acetaminophen (Ofirmev Injection -) 1,000 mg IVPB Q6H [facility] Stop: 06/02/17 07:01 Alvimopan (Entereg Capsule (Restricted) -) 12 mg PO BID [facility] Last Admin: 06/01/17 10:42 Dose: 12 mg Enoxaparin Sodium (Lovenox -) 40 mg SQ DAILY [facility] Last Admin: 06/01/17 10:41 Dose: Not Given Hydromorphone HCl (Dilaudid Injection -) 0.5 mg IVPUSH [id number] PRN PRN Reason: PAIN Stop: 06/03/17 15:35 Last Admin: 05/31/17 15:55 Dose: 0.5 mg Hydromorphone HCl (Dilaudid Rn Ante Partum -) 10 mg PASTORAL COUNSELOR PASTORAL COUNSELOR ERIK PRN Reason: Protocol Stop: 06/03/17 15:35 Famotidine/Sodium Chloride (Pepcid 20 Mg Premixed Ivpb -) 50 mls @ 100 mls/hr IVPB BID [facility] Last Admin: 06/01/17 10:41 Dose: 100 mls/hr Lactated Ringer's (Lactated Ringers Solution) 1,000 mls @ 125 mls/hr IV ASDIR [facility] Last Admin: 05/31/17 18:35 Dose: Not Given Ibuprofen (Caldolor Injection -) 800 mg IVPB Q6H [facility] Gen: awake, alert No apparent anesthesia complications. Increase PASTORAL COUNSELOR dose -see order set Supplemental analgesia with IV Ibuprofen and Acetaminophen Discussed plan with nurse Encouraged Incentive Spirometer use Continue management as per primary team. Will follow
[2017-06-01] MEDS: IBUPROFEN 800 MG/8 ML IJ IVPB SCH ×2 (13:33→18:04)
[2017-06-01] MEDS: ACETAMINOPHEN 1000 MG/100 ML VIAL (NON FORMULARY) IVPB SCH ×2 (14:10→18:33)
[2017-06-01] MEDS: LACTATED RINGERS SOLUTION 1,000 ML IV SCH (15:49)
[2017-06-02] MEDS: IBUPROFEN 800 MG/8 ML IJ IVPB SCH ×4 (01:37→18:34)
[2017-06-02] MEDS: ACETAMINOPHEN 1000 MG/100 ML VIAL (NON FORMULARY) IVPB SCH ×2 (01:37→06:59)
[2017-06-02] MEDS: HYDROmorphone *PCA* 10MG/50ML DISP.SYRIN PCA SCH ×2 (02:58→12:45)
[2017-06-02] MEDS ORDERED: PT OWN MED DRAWER 7, Y5N ONE ×3 (06:57→20:46)
[2017-06-02 08:14] LABS: BASOPHIL 0.1 % (0-2.0); EOSINOPHIL 0.5 % (0-4.5); MCH 29.7 pg (25.7-33.7); MCHC 33.8 g/dl (32.0-36.0); MEAN CELL VOLUME 87.9 fl (80-96); MEAN PLT VOLUME 8.1 fl (7.5-11.1); NEUTROPHILS 77.4 % (42.8-82.8); PLATELET COUNT 173 K/MM3 (134-434); RDW 13.5 % (11.6-15.6); WHITE BLOOD COUNT 11.2 K/mm3 (4.0-10.0)
[2017-06-02 08:39] LABS: ANION GAP 5 (8-16); CALCIUM 8.6 mg/dL (8.5-10.1); CO2 30 mmol/L (21-32)
[2017-06-02 08:41] LABS: CREATININE 0.5 mg/dL (0.55-1.02); GLUCOSE,RANDOM 93 mg/dL (74-106)
--- NOTE | 2017-06-02 09:47 | PN ---
Progress Note (short form) - Note Progress Note: Attending Surgeon POD #2 No flatus/no BM; voiding; she has been OOB VSS AF abdo-soft; midline dressing c/d/i; ostomy wound dressing changed; wound c/d/i SEGUNDO serosanguinous labs reviewed IMP: doing well PLAN: Continue present tx; wound care await return of bowel function. Best Hernández MD FACS
[2017-06-02] MEDS: FAMOTIDINE 20 MG/50 ML IVPB 50 ML IVPB SCH ×2 (10:01→21:42)
[2017-06-02] MEDS: ENOXAPARIN NA (PORCINE) 40 MG/0.4 ML DISP.SYRIN SQ SCH (10:08)
[2017-06-02] MEDS: ALVIMOPAN 12 MG CAP PO SCH ×2 (10:08→21:42)
--- NOTE | 2017-06-02 10:44 | PN ---
Progress Note (short form) - Note Progress Note: Anesthesia /pain follow up POD#2 S/P reversal of hartmen procedure under GETA.On ASSOCIATE PROFESSOR OF BIBLICAL STUDIES, hydromprphone. Pat seen and examined, VSS. No pain at rest, uses ASSOCIATE PROFESSOR OF BIBLICAL STUDIES before getting out of the bed, pain score 5-6/10. Continue with ASSOCIATE PROFESSOR OF BIBLICAL STUDIES. Eval and follow up tomorrow.
[2017-06-03] MEDS: IBUPROFEN 800 MG/8 ML IJ IVPB SCH ×4 (06:45→18:04)
[2017-06-03 07:34] LABS: BASOPHIL 0.4 % (0-2.0); MCH 29.8 pg (25.7-33.7); MEAN CELL VOLUME 87.6 fl (80-96); MEAN PLT VOLUME 8.1 fl (7.5-11.1); NEUTROPHILS 79.4 % (42.8-82.8); PLATELET COUNT 183 K/MM3 (134-434); RDW 13.6 % (11.6-15.6); WHITE BLOOD COUNT 9.5 K/mm3 (4.0-10.0)
[2017-06-03 07:48] LABS: ANION GAP 9 (8-16); CALCIUM 8.4 mg/dL (8.5-10.1); CO2 27 mmol/L (21-32); CREATININE 0.3 mg/dL (0.55-1.02); GLUCOSE,RANDOM 70 mg/dL (74-106)
--- NOTE | 2017-06-03 09:45 | PN ---
Progress Note (short form) - Note Progress Note: Attending Surgeon POD #3 s/p colo-colostomy/reversal of Hartmans procedure Minimal c/o incisional pain; had flatus and BM; OOB walking VSS AF abdomen-soft; flat; incisional tenderness is present; incision c/d/i; ostomy site clean and granulating; SEGUNDO-serosanguinous. WBC wnl; lytes wnl IMP: doing well PLAN: clear liquid diet; decrease IVF; OOB. Best Hernández MD FACS
[2017-06-03] MEDS ORDERED: PT OWN MED DRAWER 7, Y5N ONE (10:50)
[2017-06-03] MEDS: FAMOTIDINE 20 MG/50 ML IVPB 50 ML IVPB SCH ×2 (10:57→21:22)
[2017-06-03] MEDS: ENOXAPARIN NA (PORCINE) 40 MG/0.4 ML DISP.SYRIN SQ SCH (10:58)
[2017-06-03] MEDS: LACTATED RINGERS SOLUTION 1,000 ML IV SCH ×3 (10:59→21:21)
[2017-06-03] MEDS: ALVIMOPAN 12 MG CAP PO SCH (11:02)
[2017-06-03] MEDS ORDERED: oxyCODONE HCL 5 MG TABLET PO PRN (11:41)
--- NOTE | 2017-06-03 11:44 | PN ---
Progress Note (short form) - Note Progress Note: Anesthesiology post op check: Patient seen at bedside. Pain 1/10 at rest, more while walking, no nausea or vomiting. Will receive clear liquid diet today. LASER BEAM COLOR SCANNER OPERATOR has been discontinued and oral analgesics ordered. Dept of anesthesiology will sign off care at this time.
[2017-06-03] MEDS: oxyCODONE HCL 5 MG TABLET PO PRN ×3 (14:35→21:22)
[2017-06-04] MEDS: oxyCODONE HCL 5 MG TABLET PO PRN ×6 (00:34→21:23)
[2017-06-04] MEDS: IBUPROFEN 800 MG/8 ML IJ IVPB SCH ×4 (01:00→19:28)
[2017-06-04 07:23] LABS: BASOPHIL 0.7 % (0-2.0); EOSINOPHIL 2.1 % (0-4.5); MCH 29.6 pg (25.7-33.7); MCHC 33.6 g/dl (32.0-36.0); MEAN PLT VOLUME 7.4 fl (7.5-11.1); NEUTROPHILS 67.9 % (42.8-82.8); PLATELET COUNT 210 K/MM3 (134-434); RDW 13.5 % (11.6-15.6); WHITE BLOOD COUNT 6.9 K/mm3 (4.0-10.0)
--- NOTE | 2017-06-04 07:41 | PN ---
Progress Note (short form) - Note Progress Note: POD #4 Alert. Resting comfortably without complaint. Passing flatus and having formed bm's. Voiding spontaneosuly. Ambulating unassisted without difficulty. Started on clear liquid diet yesterday and tolerating. Denies n/v/f/c, CP, SOB. Last Vital Signs Temp Pulse Resp BP Pulse Ox 98.7 F 82 82 H 127/79 97 06/04/17 07:27 06/04/17 07:27 06/04/17 07:27 06/04/17 07:27 06/03/17 21:00 CBC, BMP 06/04/17 06:00 Gen: alert. nad. Abd: midline tien intact. LLQ transverse surgical incision open, clean, deep fascia intact. SEGUNDO 10mL serosang/24hrs LE: soft. nt b/l A/P POD #4 s/p colo-colostomy 1. Advanced to regular diet 2. Dressing changed on rounds 3. f/u BMP 4. Cont oob and ambulate 5. VNS ordered 6. DC planning 06/05/17
[2017-06-04 07:54] LABS: ANION GAP 10 (8-16); CALCIUM 8.1 mg/dL (8.5-10.1); CO2 25 mmol/L (21-32); GLUCOSE,RANDOM 78 mg/dL (74-106)
[2017-06-04 07:55] LABS: CREATININE 0.4 mg/dL (0.55-1.02)
[2017-06-04] MEDS: LACTATED RINGERS SOLUTION 1,000 ML IV SCH (11:02)
[2017-06-04] MEDS: FAMOTIDINE 20 MG/50 ML IVPB 50 ML IVPB SCH ×2 (11:02→21:24)
[2017-06-04] MEDS: ENOXAPARIN NA (PORCINE) 40 MG/0.4 ML DISP.SYRIN SQ SCH (11:02)
--- NOTE | 2017-06-04 13:49 | PATH ---
Surgical Pathology Report Patient Name: JOELLEN ROSAS Med. Rec. #: [id number] /Age/Gender: 1960 (Age: 56) / F Account: [id number] Location: [facility] MED/SURG Taken: 05/31/2017 Received: 06/03/2017 Reported: 06/04/2017 Physicians: Best Hernández MD Specimen(s) Received A: SCAR REVISION B: COLOSTOMY C: PROXIMAL DONUT AND DISTAL DONUT Clinical History Perforated diverticula Final Diagnosis A. SKIN, SITE NOT SPECIFIED, EXCISION: SKIN WITH DERMAL SCAR, WITH FOCAL FAT NECROSIS OF SUBCUTANEOUS ADIPOSE TISSUE. B. COLOSTOMY, REVERSAL: SEGMENT OF COLON WITH ATTACHED SKIN CONSISTENT WITH COLOSTOMY. C. COLON, PROXIMAL AND DISTAL ANASTOMOTIC DONUT, EXCISION: PORTION OF INTESTINAL WALL CONSISTENT WITH ANASTOMOTIC DONUTS. Comment: See [id number] Electronically Signed Yoan Mccauley M.D. Gross Description A. Received in formalin labeled "scar revision," is a 13.0 x 1.1 cm sams, elliptical, unoriented portion of skin excised to a depth of 1.5 cm. The epidermal surface displays a central, linear, well healed scar. Intensivist sections are submitted in one cassette. B. Received in formalin labeled "colostomy," is a 4.8 x 2.4 cm sams, elliptical portion of skin with a central os, consistent with a colostomy. The colostomy displays a 3 cm in length attached portion of colon. No discrete lesions are identified. A representative government relations section is submitted in one cassette. C. Received in formalin labeled "proximal and distal donut," are 2 sams, annular, unremarkable portions of bowel, consistent with donuts. One of the donuts is attached to a bartholomew metallic surgical device. No discrete lesions are identified. Intensivist sections are submitted in 2 cassettes as follows: 1-donut attached to surgical device; 2-remaining donut. 06/03/201706/03/2017
[2017-06-04] MEDS: KCL 10 MEQ IVPB 100 ML IVPB SCH ×2 (18:29→20:33)
[2017-06-05] MEDS: IBUPROFEN 800 MG/8 ML IJ IVPB SCH ×2 (00:28→06:21)
[2017-06-05] MEDS: oxyCODONE HCL 5 MG TABLET PO PRN ×2 (02:22→09:26)
--- NOTE | 2017-06-05 07:37 | PN ---
Progress Note (short form) - Note Progress Note: POD #5 Alert. Resting comfortably without complaint. Continues to pass flatus. Formed stool in toilet. Started on regular diet yesterday and tolerated. Voiding spontaneosuly. Ambulating unassisted without difficulty. Denies n/v/f/c, CP, SOB. Last Vital Signs Temp Pulse Resp BP Pulse Ox 98.8 F 91 H 18 152/85 97 06/05/17 06:25 06/05/17 06:25 06/05/17 06:25 06/05/17 06:25 06/03/17 21:00 Gen: alert. nad. Abd: midline tien intact. LLQ transverse surgical incision open, clean, deep fascia intact. SEGUNDO minimal output LE: soft. nt b/l A/P POD #5 s/p colo-colostomy 1. SEGUNDO dc'd on rounds 2. Dressing changed 3. VNS 4. Cleared for discharge home today 5. Above discussed with Dr. Hernández and agrees
[2017-06-05 07:54] LABS: BASOPHIL 0.5 % (0-2.0); EOSINOPHIL 2.5 % (0-4.5); MCH 29.7 pg (25.7-33.7); MCHC 33.9 g/dl (32.0-36.0); MEAN CELL VOLUME 87.4 fl (80-96); MEAN PLT VOLUME 7.6 fl (7.5-11.1); PLATELET COUNT 259 K/MM3 (134-434); RDW 13.9 % (11.6-15.6)
[2017-06-05 08:31] LABS: ANION GAP 8 (8-16); CALCIUM 8.5 mg/dL (8.5-10.1); CO2 29 mmol/L (21-32); GLUCOSE,RANDOM 94 mg/dL (74-106)
[2017-06-05 08:32] LABS: CREATININE 0.4 mg/dL (0.55-1.02)
[2017-06-05] MEDS: ENOXAPARIN NA (PORCINE) 40 MG/0.4 ML DISP.SYRIN SQ SCH (09:13)
[2017-06-05 09:54] VITALS: BP 145/85; PULSE 88; TEMP 97.8
--- NOTE | 2017-06-05 10:12 | OP ---
DATE OF OPERATION: 05/31/2017 PREOPERATIVE DIAGNOSES: Status post perforated diverticulitis with enterocutaneous fistula and status post sigmoid colon resection and end colostomy. POSTOPERATIVE DIAGNOSES: Status post perforated diverticulitis with enterocutaneous fistula and status post sigmoid colon resection and end colostomy. PROCEDURE: Rigid sigmoidoscopy, examination under anesthesia, and reversal of Gardenia procedure (colocolostomy). SURGEON: Best Hernández MD CHIEF SCIENTIST: Saud Brownlee PA-C ANESTHESIA: General. OPERATIVE FINDINGS: There was a distal rectal segment that measured approximately 15 cm from the anal verge on rigid proctosigmoidoscopic examination. There were extensive intraabdominal adhesions from previous surgery. There were multiple uterine fibroids seen on previous surgery. There were no intraabdominal fluid or abscess collections, and the rest of the findings were unremarkable. DESCRIPTION OF PROCEDURE: The patient was placed on the operating table in supine position, and after the induction of general anesthesia and the placement of a Snyder catheter, the patient was placed in the dorsal lithotomy position. A timeout was taken and rigid sigmoidoscopy carried out and the previously-noted findings were observed. The abdomen and perineum and thighs were then prepped with ChloraPrep and draped in sterile fashion. An incision was made in the abdominal wall using a scalpel, and the previous surgical midline scar was excised and sent for pathological examination. The abdomen was entered under direct vision, and the previously-noted findings were observed. Extensive adhesiolysis was carried out using blunt and sharp dissection. The rectal stump was identified within the pelvis. Next, the old colostomy was taken down by incising the skin around it in an elliptical fashion and bringing the colostomy through the abdominal wall, into the abdominal cavity. Prior to doing this, the end of the colostomy had been stapled closed. Minimal mobilization of the proximal colon was done along the white line of Toldt using blunt and sharp dissection. Once adequate length was achieved without evidence of tension, the previous staple line in the proximal colon was excised and after a pursestring suture device was placed. The colon was sized, and it was decided to use a 22 EEA circular stapling device to create the anastomosis. The anvil of the stapling device was placed in the proximal colon and the pursestring suture tied. Next, the EEA was placed through the rectum and brought up into the pelvis, and the spike advanced through the anterior rectal wall. The proximal colon was then connected to the stapling device, and the stapling device closed. Care was taken to make sure no extraneous tissue was within the proposed staple line and that there was no tension. The stapler was fired and then removed. The donuts from the stapling device were examined and found to be complete and sent for pathological examination. The pelvis was then filled with saline and a leak test done without evidence of bubbling through the anastomosis. Copious irrigation was then carried out and hemostasis secured. A 10-mm Pastor-Muller drain was placed through a separate stab wound in the abdominal wall and placed in the pelvis. Hemostasis was verified again, and then, the small bowel returned to its normal intraabdominal location. The abdomen was closed in a single layer using continuous No. 1 looped Maxon suture. Prior to this, the colostomy site was closed with interrupted, figure-of-8, No. 1 Prolene sutures. The skin edges of the midline wound were reapproximated using surgical tien, and the old colostomy site packed with saline-soaked Kerlix. The drain was connected to bulb self-suction, the patient taken out of the dorsal lithotomy position and the patient aroused from general anesthesia and transferred to the postanesthesia care unit in stable condition, awake and alert. ESTIMATED BLOOD LOSS: 150 mL REPLACEMENTS: Crystalloid. DRAINS: One 10-mm Pastor-Muller in the pelvis. SPECIMENS: Old skin scar, old colostomy site, and anastomotic donuts. I, Best Hernández MD, was physically present in the operating room from the time the patient was placed on the operating table until she was transferred to the postanesthesia care unit in my accompaniment. MD CANDACE Wyatt/[id number]
--- NOTE | 2017-06-05 12:12 | DS ---
Physical Exam: SUBJECTIVE: Patient seen and examined OBJECTIVE: Vital Signs Temperature 97.8 F 06/05/17 09:52 Pulse Rate 88 06/05/17 09:52 Respiratory Rate 18 06/05/17 09:52 Blood Pressure 145/85 06/05/17 09:52 O2 Sat by Pulse Oximetry (%) 97 06/03/17 21:00 PHYSICAL EXAM GENERAL: The patient is awake, alert, and fully oriented, in no acute distress. HEAD: Normal with no signs of trauma. EYES: PERRL, extraocular movements intact, sclera anicteric, conjunctiva clear. ENT: Ears normal, nares patent, oropharynx clear without exudates, moist mucous membranes. NECK: Trachea midline, full range of motion, supple. LUNGS: Breath sounds equal, clear to auscultation bilaterally, no wheezes, no crackles, no accessory muscle use. HEART: Regular rate and rhythm, S1, S2 without murmur, rub or gallop. ABDOMEN: Soft, nontender, nondistended, normoactive bowel sounds, no guarding, no rebound, no hepatosplenomegaly, no masses. EXTREMITIES: 2+ pulses, warm, well-perfused, no edema. NEUROLOGICAL: Cranial nerves II through XII grossly intact. Normal speech, gait not observed. PSYCH: Normal mood, normal affect. SKIN: Warm, dry, normal turgor, no rashes or lesions noted. LABS CBC,CMP WBC 7.0 K/mm3 (4.0-10.0) 06/05/17 07:40 RBC 3.48 M/mm3 (3.60-5.2) L 06/05/17 07:40 Hgb 10.3 GM/dL (10.7-15.3) L 06/05/17 07:40 Hct 30.5 % (32.4-45.2) L 06/05/17 07:40 MCV 87.4 fl (80-96) 06/05/17 07:40 MCH 29.7 pg (25.7-33.7) 06/05/17 07:40 MCHC 33.9 g/dl (32.0-36.0) 06/05/17 07:40 RDW 13.9 % (11.6-15.6) 06/05/17 07:40 Plt Count 259 K/MM3 (134-434) D 06/05/17 07:40 MPV 7.6 fl (7.5-11.1) 06/05/17 07:40 Neutrophils % 55.0 % (42.8-82.8) 06/05/17 07:40 Lymphocytes % 31.1 % (8-40) D 06/05/17 07:40 Monocytes % 10.9 % (3.8-10.2) H 06/05/17 07:40 Eosinophils % 2.5 % (0-4.5) 06/05/17 07:40 Basophils % 0.5 % (0-2.0) 06/05/17 07:40 Sodium 139 mmol/L (136-145) 06/05/17 07:40 Potassium 3.4 mmol/L (3.5-5.1) L 06/05/17 07:40 Chloride 102 mmol/L (98-107) 06/05/17 07:40 Carbon Dioxide 29 mmol/L (21-32) 06/05/17 07:40 Anion Gap 8 (8-16) 06/05/17 07:40 BUN 5 mg/dL (7-18) L 06/05/17 07:40 Creatinine 0.4 mg/dL (0.55-1.02) L 06/05/17 07:40 Random Glucose 94 mg/dL (74-106) D 06/05/17 07:40 Calcium 8.5 mg/dL (8.5-10.1) 06/05/17 07:40 HOSPITAL COURSE: Date of Admission:05/31/17 Date of Discharge: 06/05/17 The patient was admitted to the Med-Surg Unit after an elective repair of Gardenia's Procedure. Now, s/p colo-colostomy. The day of surgery, the patient ambulated the hallways with assistance. Narcotic and non-narcotic pain management control was achieved with an oral and IV approach. Once patient's bowel continuity restored (indicated by passing flatus) she was started on a clear liquid diet. It was advanced as tolerated. Her SEGUNDO drain was dc'd on POD #5. Magali-operative IV ABX were administered. DVT prophylaxis was achieved with SCDs and early ambulation. [place] checked. The discharge instructions and an oral pain management plan were reviewed with the patient. All questions answered. Above plan discussed with Dr. Hernández and agreed. Minutes to complete discharge: 20 Visit type - Case Type Case Type: Scheduled Admission - New patient This patient is new to me today: Yes Date on this admission: 06/05/17
== END 2017-06-05 11:55 | disposition home health service (06) | DRG 221 ==
LOC: JSAMEDAYSX 06:45 → J8W 18:15
PROVIDERS: ADMIT Surgery; ATTEND Surgery
PROC: 0DNE0ZZ Release Large Intestine, Open Approach (ICD-10-PCS; 2017-05-31)
PROC: 0DJD8ZZ Inspection of Lower Intestinal Tract, Via Natural or Artificial Opening Endoscopic (ICD-10-PCS; 2017-05-31)
PROC: 0DNW0ZZ Release Peritoneum, Open Approach (ICD-10-PCS; 2017-05-31)
PROC: 0DQE0ZZ Repair Large Intestine, Open Approach (ICD-10-PCS; principal; 2017-05-31 09:30)
DX: Z43.3 Encounter for attention to colostomy (principal); K66.0 Peritoneal adhesions (postprocedural) (postinfection); K63.2 Fistula of intestine; K57.92 Diverticulitis of intestine, part unspecified, without perforation or abscess without bleeding
CPT/HCPCS: 36415; 80048; 84703; 85025; 85027; 86850; 86900; 86901; 88304-TC; 94760